=== PATIENT | male | born 1980 | race Two or more races ===

== ENCOUNTER 2018-12-04 19:54 | Inpatient (IN) | payer SELFPAY ==
[~2018-12-04] VITALS: Ht 167.6 cm; Wt 121.8 kg
[2018-12-04] MEDS ORDERED: fentaNYL PF VIAL 100 MCG/2 ML VIAL IV ONE (20:30)
[2018-12-04 20:38] LABS: BASO % 0 % (0-3); EOS % 0 % (0-3); HEMATOCRIT 42.9 % (39.0-53.0); HEMOGLOBIN 14.5 g/dL (13.0-17.5); LYMPH # 1.3 x10^3/uL (1.0-4.8); LYMPH % 6 % (24-48); MEAN CORPUSCULAR HEMOGLOBIN 29 pg (25-35); MEAN CORPUSCULAR HGB CONC 34 g/dL (31-37); MEAN CORPUSCULAR VOLUME 84 fL (79-100); MONO # 1.6 x10^3/uL (0.0-1.1); MONO % 7 % (0-9); NEUT % 87 % (31-73); PLATELET COUNT 272 x10^3/uL (140-400); RED CELL DISTRIBUTION WIDTH 13.5 % (11.5-14.5); WHITE BLOOD COUNT 21.9 x10^3/uL (4.0-11.0)
[2018-12-04 20:46] LABS: PROTHROMBIN TIME PATIENT 14.4 SEC (11.7-14.0)
[2018-12-04 20:48] LABS: CALCIUM 9.6 mg/dL (8.5-10.1); CREATININE 1.5 mg/dL (0.7-1.3); GFR 52.4; POTASSIUM 3.7 mmol/L (3.5-5.1)
[2018-12-04 20:54] LABS: ALBUMIN 3.8 g/dL (3.4-5.0); ALBUMIN/GLOBULIN RATIO 1.1 (1.0-1.7); TOTAL BILIRUBIN 0.6 mg/dL (0.2-1.0); TOTAL PROTEIN 7.3 g/dL (6.4-8.2)
[2018-12-04] MEDS ORDERED: IOHEXOL 300 MG/ML 100ML VIAL. IV ONE (21:30)
[2018-12-04 21:33] LABS: % BANDS 2 % (0-9); % LYMPHS 9 % (24-48); % MONOS 4 % (0-10); % SEGS 85 % (35-66); PLT ESTIMATE ADEQUATE (ADEQUATE)
--- NOTE | 2018-12-04 21:38 | RAD ---
CT Head W/O Contrast: History: TRAUMA ALERT S/P FALL Comparison: none Axial images were obtained without contrast. The wallace and white matter appears normal and symmetrical for the patients age. There is no mass effect, extraaxial fluid collections or hydrocephalus. There is no gross bleed. There is no focal loss of wallace-white matter distinction to suggest acute ischemia, i.e. stroke. Impression: No acute findings. End impression CT C-Spine without contrast: Clinical History: TRAUMA ALERT S/P FALL Technique: Axial helical images of the cervical spine were obtained without contrast, axial coronal and sagittal reconstruction was performed. Findings: There is no loss of vertebral body stature. There is no prevertebral soft tissue swelling. The vertebral bodies are well aligned. The C1-C2 relationship is normal. The visualized osseous structures appear normal. Impression: No acute findings. Clinical correlation suggested. PQRS Compliance Statement: One or more of the following individualized dose reduction techniques were utilized for this examination: 1. Automated exposure control 2. Adjustment of the mA and/or kV according to patient size 3. Use of iterative reconstruction technique Electronically signed by: Kyler Birmingham III, MD (12/04/2018 9:35 PM) [facility]
[2018-12-04] MEDS ORDERED: CONTRAST GIVEN. MC PRN (21:45)
[2018-12-04] MEDS ORDERED: IV NORMAL SALINE 1000ML BAG 1,000 ML IV ONE (21:45)
--- NOTE | 2018-12-04 21:56 | RAD ---
CT chest abdomen and pelvis with contrast: History: Trauma due to fall Axial helical images of the chest abdomen and pelvis were obtained after the administration of 75 cc IV Omni 300 contrast. Comparison: none CT OF THE CHEST WITH IV CONTRAST: There is a mildly displaced comminuted fracture of the right scapula. There is mild deformity of the anterior left fifth through eighth ribs. There is no mediastinal lymphadenopathy or hematoma. There is no hilar lymphadenopathy. The lungs are clear. The thoracic aorta appears normal. Impression: 1. Acute nondisplaced rib fractures on the left. 2. Mildly displaced fracture of the right scapula. End Impression CT SCAN OF THE ABDOMEN WITH IV CONTRAST: Findings: Liver: Unremarkable Spleen: Unremarkable Pancreas: Unremarkable Adrenal Glands: Unremarkable Kidneys: Unremarkable Evaluation of stomach and bowel is limited without oral contrast. There is no mass or lymphadenopathy. There is no free air. There is no free fluid. There is soft tissue ecchymosis over the left flank and left buttocks. CT OF THE PELVIS WITH IV CONTRAST: There is no lymphadenopathy or free fluid. The bladder appears normal without extravasation of contrast. There is no pericolonic inflammation. There is fractures of the left first through fourth lumbar transverse processes. Impression: 1. Diffuse ecchymosis in the soft tissues on the left. No acute intra-abdominal or intrapelvic pathology. 2. Acute fractures of the left transverse processes of L1-L4. End impression CT thoracic spine without contrast History: Back pain Axial helical images of the thoracic spine were obtained without contrast. Axial, coronal and sagittal reconstruction was performed. Findings: There is fractures of the T9-T12 spinous processes. The vertebral bodies are aligned. There is no loss of vertebral body stature. Evaluation of the central canal is limited without contrast. There is no evidence of significant central or neuroforaminal stenosis. Impression: Acute fractures of the T9 through T12 spinous processes. PQRS Compliance Statement: One or more of the following individualized dose reduction techniques were utilized for this examination: 1. Automated exposure control 2. Adjustment of the mA and/or kV according to patient size 3. Use of iterative reconstruction technique Electronically signed by: Kyler Birmingham III, MD (12/04/2018 9:53 PM) [facility]
--- NOTE | 2018-12-04 22:06 | RAD ---
SHOULDER 2+V RIGHT, PORTABLE CHEST 1V Clinical History: RIGHT SHOULDER PAIN AFTER FALL OFF 6 FOOT LEDGE. IN C-COLLAR One view chest: Technique: AP view of the chest was obtained at 12/04/2018 8:14 PM. Comparison: None. Findings: The cardiomediastinal silhouette is normal. The pulmonary vasculature is normal. The lungs and pleural margins are clear. Impression: No evidence of an acute cardiopulmonary process. End impression Three views right shoulder History: pain Internally and externally rotated AP of shoulder obtained, as well as "Y" view. The glenohumeral relationship is normal. There is a comminuted mildly displaced fracture of the right scapula. Impression: Acute fracture of the right scapula. end impression Electronically signed by: Kyler Birmingham III, MD (12/04/2018 10:03 PM) [facility]
[2018-12-04] MEDS: ONDANSETRON PF 4 MG/2 ML VIAL. IV PRN (23:22)
[2018-12-04] MEDS: MORPHINE SULFATE 4 MG/ML VIAL. IV PRN (23:22)
--- NOTE | 2018-12-04 23:32 | PHYS DOC ---
Past Medical History Past Medical History: No Pertinent History Past Surgical History: No Surgical History Alcohol Use: None Drug Use: Cocaine Adult General Chief Complaint Chief Complaint: TRAUMA ALERT HPI HPI Patient is a 38 year old M P/W TRAUMA FELL DOWN 6 FEET OFF LADDER LANDED ON BACK. PAIN SHARP SEVERE LOW BACK AND UPPER BACK WELL. RIGHT SHOULDER RADIATION NO LOC HAS NOT TRIED ANYTHING FOR RELIEF. NO PREVIOUS MEDICAL HX NO MEDS NO ALLERGIES DOES NOT HAVE A DOCTOR HAPPENED JUST STRAWBERRY GROWER NO ALLEVIATING FACTORS Review of Systems Review of Systems Constitutional: Denies fever or chills [] Eyes: Denies change in visual acuity, redness, or eye pain [] HENT: Denies nasal congestion or sore throat [] Respiratory:CHEST PAIN NOTED ON LEFT WELL Musculoskeletal: Integument: Denies rash or skin lesions [] Neurologic: Denies headache, focal weakness or sensory changes [] All other systems were reviewed and found to be within normal limits, except as documented in this note. Current Medications Current Medications Current Medications Medications (Trade) Dose Ordered Sig/Samanta Start Time Stop Time Status Last Admin Dose Admin Fentanyl Citrate (Fentanyl 2ml Vial) 50 mcg 1X ONCE 12/04/18 20:30 12/04/18 20:36 DC 12/04/18 21:22 50 MCG Info (CONTRAST GIVEN -- Rx MONITORING) 1 each PRN DAILY PRN 12/04/18 21:45 12/06/18 21:44 Iohexol (Omnipaque 300 Mg/ml) 75 ml 1X ONCE 12/04/18 21:30 12/04/18 21:31 DC Morphine Sulfate (Morphine Sulfate) 4 mg PRN Q2HR PRN 12/04/18 23:15 12/05/18 23:14 12/04/18 23:22 4 MG Ondansetron HCl (Zofran) 4 mg PRN Q8HRS PRN 12/04/18 23:15 12/05/18 23:14 12/04/18 23:22 4 MG Sodium Chloride 1,000 ml @ 1,000 mls/hr 1X ONCE 12/04/18 21:45 12/04/18 22:44 DC 12/04/18 21:58 1,000 MLS/HR Allergies Allergies Allergies Coded Allergies Type Severity Reaction Last Updated Verified No Known Drug Allergies 12/04/18 No Physical Exam Physical Exam Constitutional: Well developed, well nourished, no acute distress, non-toxic appearance. [] HENT: Normocephalic, atraumatic, bilateral external ears normal, oropharynx moist, no oral exudates, nose normal. [] Eyes: PERRLA, EOMI, conjunctiva normal, no discharge. [] Neck: Normal range of motion, no tenderness, supple, no stridor. [] Cardiovascular:Heart rate regular rhythm, no murmur [] Lungs & Thorax: Bilateral breath sounds clear to auscultation [] Abdomen: Bowel sounds normal, soft, no tenderness, no masses, no pulsatile masses. [] Skin: Warm, dry, no erythema, no rash. [] Back: No tenderness, no CVA tenderness. [] Extremities: No tenderness, no cyanosis, no clubbing, ROM intact, no edema. [] Neurologic: Alert and oriented X 3, normal motor function, normal sensory function, no focal deficits noted. [] Psychologic: Affect normal, judgement normal, mood normal. [] Current Patient Data Vital Signs Vital Signs Date Time Temp Pulse Resp B/P (MAP) Pulse Ox O2 Delivery O2 Flow Rate FiO2 12/04/18 23:22 19 97 Room Air 12/04/18 22:20 65 132/71 (91) 12/04/18 20:00 98.6 98.6 Lab Values Laboratory Tests Test 12/04/18 20:30 White Blood Count 21.9 x10^3/uL (4.0-11.0) H Red Blood Count 5.10 x10^6/uL (4.30-5.70) Hemoglobin 14.5 g/dL (13.0-17.5) Hematocrit 42.9 % (39.0-53.0) Mean Corpuscular Volume 84 fL (79-100) Mean Corpuscular Hemoglobin 29 pg (25-35) Mean Corpuscular Hemoglobin Concent 34 g/dL (31-37) Red Cell Distribution Width 13.5 % (11.5-14.5) Platelet Count 272 x10^3/uL (140-400) Neutrophils (%) (Auto) 87 % (31-73) H Lymphocytes (%) (Auto) 6 % (24-48) L Monocytes (%) (Auto) 7 % (0-9) Eosinophils (%) (Auto) 0 % (0-3) Basophils (%) (Auto) 0 % (0-3) Neutrophils # (Auto) 19.0 x10^3uL (1.8-7.7) H Lymphocytes # (Auto) 1.3 x10^3/uL (1.0-4.8) Monocytes # (Auto) 1.6 x10^3/uL (0.0-1.1) H Eosinophils # (Auto) 0.0 x10^3/uL (0.0-0.7) Basophils # (Auto) 0.0 x10^3/uL (0.0-0.2) Segmented Neutrophils % 85 % (35-66) H Band Neutrophils % 2 % (0-9) Lymphocytes % 9 % (24-48) L Monocytes % 4 % (0-10) Platelet Estimate Adequate (ADEQUATE) Prothrombin Time 14.4 SEC (11.7-14.0) H Prothrombin Time INR 1.2 (0.8-1.1) H Sodium Level 134 mmol/L (136-145) L Potassium Level 3.7 mmol/L (3.5-5.1) Chloride Level 97 mmol/L (98-107) L Carbon Dioxide Level 22 mmol/L (21-32) Anion Gap 15 (6-14) H Blood Urea Nitrogen 23 mg/dL (8-26) Creatinine 1.5 mg/dL (0.7-1.3) H Estimated GFR (Cockcroft-Gault) 52.4 BUN/Creatinine Ratio 15 (6-20) Glucose Level 126 mg/dL (70-99) H Calcium Level 9.6 mg/dL (8.5-10.1) Total Bilirubin 0.6 mg/dL (0.2-1.0) Aspartate Amino Transferase (AST) 54 U/L (15-37) H Alanine Aminotransferase (ALT) 56 U/L (16-63) Alkaline Phosphatase 116 U/L (46-116) Total Protein 7.3 g/dL (6.4-8.2) Albumin 3.8 g/dL (3.4-5.0) Albumin/Globulin Ratio 1.1 (1.0-1.7) Ethyl Alcohol Level < 10 mg/dL (0-10) Laboratory Tests 12/04/18 20:30 Laboratory Tests 12/04/18 20:30 EKG EKG [] Radiology/Procedures Radiology/Procedures [] Impressions: One view chest: Technique: AP view of the chest was obtained at 12/04/2018 8:14 PM. Comparison: None. Findings: The cardiomediastinal silhouette is normal. The pulmonary vasculature is normal. The lungs and pleural margins are clear. Impression: No evidence of an acute cardiopulmonary process. End impression Three views right shoulder History: pain Internally and externally rotated AP of shoulder obtained, as well as "Y" view. The glenohumeral relationship is normal. There is a comminuted mildly displaced fracture of the right scapula. Impression: Acute fracture of the right scapula. end impression Electronically signed by: Anibal Birmingham III, MD (12/04/2018 10:03 PM) [facility] DICTATED and SIGNED BY: ANIBAL BIRMINGHAM III, MD CT OF THE CHEST WITH IV CONTRAST: There is a mildly displaced comminuted fracture of the right scapula. There is mild deformity of the anterior left fifth through eighth ribs. There is no mediastinal lymphadenopathy or hematoma. There is no hilar lymphadenopathy. The lungs are clear. The thoracic aorta appears normal. Impression: 1. Acute nondisplaced rib fractures on the left. 2. Mildly displaced fracture of the right scapula. End Impression CT SCAN OF THE ABDOMEN WITH IV CONTRAST: Findings: Liver: Unremarkable Spleen: Unremarkable Pancreas: Unremarkable Adrenal Glands: Unremarkable Kidneys: Unremarkable Evaluation of stomach and bowel is limited without oral contrast. There is no mass or lymphadenopathy. There is no free air. There is no free fluid. There is soft tissue ecchymosis over the left flank and left buttocks. CT OF THE PELVIS WITH IV CONTRAST: There is no lymphadenopathy or free fluid. The bladder appears normal without extravasation of contrast. There is no pericolonic inflammation. There is fractures of the left first through fourth lumbar transverse processes. Impression: 1. Diffuse ecchymosis in the soft tissues on the left. No acute intra-abdominal or intrapelvic pathology. 2. Acute fractures of the left transverse processes of L1-L4. End impression CT thoracic spine without contrast History: Back pain Axial helical images of the thoracic spine were obtained without contrast. Axial, coronal and sagittal reconstruction was performed. Findings: There is fractures of the T9-T12 spinous processes. The vertebral bodies are aligned. There is no loss of vertebral body stature. Evaluation of the central canal is limited without contrast. There is no evidence of significant central or neuroforaminal steno sis. Impression: Acute fractures of the T9 through T12 spinous processes. PQRS Compliance Statement: One or more of the following individualized dose reduction techniques were utilized for this examination: 1. Automated exposure control 2. Adjustment of the mA and/or kV according to patient size 3. Use of iterative reconstruction technique Electronically signed by: Anibal Birmingham III, MD (12/04/2018 9:53 PM) [facility] DICTATED and SIGNED BY: ANIBAL BIRMINGHAM III, MD DATE: 12/04/182152 CT C-Spine without contrast: Clinical History: TRAUMA ALERT S/P FALL Technique: Axial helical images of the cervical spine were obtained without contrast, axial coronal and sagittal reconstruction was performed. Findings: There is no loss of vertebral body stature. There is no prevertebral soft tissue swelling. The vertebral bodies are well aligned. The C1-C2 relationship is normal. The visualized osseous structures appear normal. Impression: No acute findings. Clinical correlation suggested. PQRS Compliance Statement: One or more of the following individualized dose reduction techniques were utilized for this examination: 1. Automated exposure control 2. Adjustment of the mA and/or kV according to patient size 3. Use of iterative reconstruction technique Electronically signed by: Anibal Birmingham III, MD (12/04/2018 9:35 PM) [facility] DICTATED and SIGNED BY: ANIBAL BIRMINGHAM III, MD DATE: 12/04/182134 Course & Med Decision Making Course & Med Decision Making Pertinent Labs and Imaging studies reviewed. (See chart for details) []38 YO FALL DOWN SIX FEET TP , SPINOUS PROCESS MULTIPLE OF EACH RIB FRACTURES FAST WAS NEGATIVE ON ARRIVAL CT C/A/P NO PTX, KIRK, OR INTRAABDOMIONAL BLEEDING SCAPULA FRACTURE SLING TO RUE. PT IS NEURO INTACT DISTALLY STRENGTH AND SENSATION INTACT IN LOWER EXTREMITIES AT THIS TIME. I CLEARED CSPINE HE WAS ABLE TO COOPERATE WITH EXAM AFTER PAIN CONTROL AND CT CSPINE NEG . D/W RADHA, WILL ADMIT TO HOSPITALIST PAIN CONTROL, ORTHO AND N'SURG CONSULT I D/W PATIENT VIA DIRECTOR SELECTION AND ADMINISTRATION THE PLAN AND HE IS IN AGREEMENT. Dragon Disclaimer Dragon Disclaimer This electronic medical record was generated, in whole or in part, using a voice recognition dictation system. Departure Departure Impression: Primary Impression: Rib fractures Additional Impressions: Scapula fracture Multiple transverse process fractures Disposition: 09 ADMITTED INPATIENT Admitting Physician: Debra Chowdhury Condition: STABLE Referrals: NO PCP (PCP) Problem Qualifiers BRINA MERCER MD Dec 04, 2018 23:32
[2018-12-05] VITALS (7 sets, daily range): BP systolic 106–124; BP diastolic 50–77
[2018-12-05] MEDS: MORPHINE SULFATE 4 MG/ML VIAL. IV PRN ×3 (01:37→13:15)
--- NOTE | 2018-12-05 02:54 | NUR ---
The patient, DIEGO ALLEN, 38 y/o, was M admitted by MILA GAINES MD. Pt. arrived on unit at 0130 via bed. Pt. described pain as 10/10. Pain medication was given. Admission assessment done at this time. Pt. was given written information regarding hospital policies, unit procedures and contact persons. Call light within reach, bed low. Will continue to monitor.
--- NOTE | 2018-12-05 03:23 | NUR ---
Pt. does not have a pharmacy he uses. He has no known medications.
[2018-12-05] MEDS: IV NORMAL SALINE 1000ML BAG 1,000 ML IV SCH ×2 (05:57→15:53)
[2018-12-05] MEDS: ONDANSETRON PF 4 MG/2 ML VIAL. IV PRN (05:58)
--- NOTE | 2018-12-05 09:49 | PDOC2 ---
SHANEKA CASON FUR [employer]AT SEWER 12/05/18 0949: CONSULT Date of Consult Date of Consult DATE: 12/05/18 TIME: 09:43 Reason for Consult Reason for Consult: Trauma consult Referring Physician Referring Physician: ER Source Source: Chart review, Patient History of Present Illness Reason for Visit: Admitted after fall for ladder, 6 feet high. Fell on back, pain in back and left side. Denies LOC.Denies abdominal pain, nausea or emesis. Past Medical History Past Medical History no pertinent hx Past Surgical History Past Surgical History: Other (right leg surgery after fall from horse) Family History Family History: Family History Unknown Social History <1 pack per day ALCOHOL: social Drugs: Cocaine Lives: Alone Current Problem List Problem List Problems Medical Problems: (1) Multiple transverse process fractures Status: Acute (2) Rib fractures Status: Acute (3) Scapula fracture Status: Acute Current Medications Current Medications Current Medications Fentanyl Citrate (Fentanyl 2ml Vial) 50 mcg 1X ONCE IV Last administered on 12/04/18at 21:22; Start 12/04/18 at 20:30; Stop 12/04/18 at 20:36; Status DC Iohexol (Omnipaque 300 Mg/ml) 75 ml 1X ONCE IV ; Start 12/04/18 at 21:30; Stop 12/04/18 at 21:31; Status DC Info (CONTRAST GIVEN -- Rx MONITORING) 1 each PRN DAILY PRN MC SEE COMMENTS; Start 12/04/18 at 21:45; Stop 12/06/18 at 21:44 Sodium Chloride 1,000 ml @ 1,000 mls/hr 1X ONCE IV Last administered on 12/04/18at 21:58; Start 12/04/18 at 21:45; Stop 12/04/18 at 22:44; Status DC Ondansetron HCl (Zofran) 4 mg PRN Q8HRS PRN IV NAUSEA/VOMITING Last administered on 12/05/18at 05:58; Start 12/04/18 at 23:15; Stop 12/05/18 at 23:14 Morphine Sulfate (Morphine Sulfate) 4 mg PRN Q2HR PRN IV PAIN Last administered on 12/05/18at 05:57; Start 12/04/18 at 23:15; Stop 12/05/18 at 23:14 Influenza Virus Vaccine (Afluria Trivalent [id number] Syringe) 0.5 ml ONCE ONCE VAX IM ; Start 12/05/18 at 03:00; Stop 12/05/18 at 03:01; Status UNV Sodium Chloride 1,000 ml @ 100 mls/hr Q10H IV Last administered on 12/05/18at 05:57; Start 12/05/18 at 06:00 Active Scripts Active Reported No Known Medications Prior To Admisstion (Info) Each 1 Each MC 1X Allergies Allergies: Coded Allergies: No Known Drug Allergies (Unverified , 12/04/18) ROS General: No: Chills, Other (fevers) PSYCHOLOGICAL ROS: No: Anxiety, Depression Eyes: No Blurry vision, No Double vision, No Loss of vision, No Photophobia HEENT: No: Heacaches, Visual Changes, Hearing change, Sore Throat Hematological and Lymphatic: No: Bleeding Problems, Blood Clots Respiratory: YES: Shortness of breath; No: Cough Cardiovascular: No Chest Pain, No Palpitations Gastrointestinal: Yes Other (see hpi) Genitourinary: No Dysuria, No Hematuria Musculoskeletal: Yes Joint Pain, Yes Muscle Pain Neurological: No Bowel/Bladder ControlChng, No Impaired Coord/balance, No Nu mbness/Tingling Skin: No Pruritus, No Rash Physical Exam General: Alert, Oriented X3, Cooperative, No acute distress HEENT: PERRLA, Mucous membr. moist/pink Lungs: Clear to auscultation, Normal air movement Heart: Regular rate, Normal S1, Normal S2, No murmurs Abdomen: Soft, No tenderness, No hepatosplenomegaly Extremities: No clubbing, No cyanosis Skin: No rashes, No breakdown Neuro: Normal speech, Sensation intact Psych/Mental Status: Mental status NL, Mood NL MUSCULOSKELETAL: Other (right arm in sling ) Vitals VITALS Vital Signs Date Time Temp Pulse Resp B/P (MAP) Pulse Ox O2 Delivery O2 Flow Rate FiO2 12/05/18 07:00 98.3 68 18 108/54 (72) 96 Room Air 98.3 Labs Labs Laboratory Tests Test 12/04/18 20:30 White Blood Count 21.9 x10^3/uL (4.0-11.0) Red Blood Count 5.10 x10^6/uL (4.30-5.70) Hemoglobin 14.5 g/dL (13.0-17.5) Hematocrit 42.9 % (39.0-53.0) Mean Corpuscular Volume 84 fL (79-100) Mean Corpuscular Hemoglobin 29 pg (25-35) Mean Corpuscular Hemoglobin Concent 34 g/dL (31-37) Red Cell Distribution Width 13.5 % (11.5-14.5) Platelet Count 272 x10^3/uL (140-400) Neutrophils (%) (Auto) 87 % (31-73) Lymphocytes (%) (Auto) 6 % (24-48) Monocytes (%) (Auto) 7 % (0-9) Eosinophils (%) (Auto) 0 % (0-3) Basophils (%) (Auto) 0 % (0-3) Neutrophils # (Auto) 19.0 x10^3uL (1.8-7.7) Lymphocytes # (Auto) 1.3 x10^3/uL (1.0-4.8) Monocytes # (Auto) 1.6 x10^3/uL (0.0-1.1) Eosinophils # (Auto) 0.0 x10^3/uL (0.0-0.7) Basophils # (Auto) 0.0 x10^3/uL (0.0-0.2) Segmented Neutrophils % 85 % (35-66) Band Neutrophils % 2 % (0-9) Lymphocytes % 9 % (24-48) Monocytes % 4 % (0-10) Platelet Estimate Adequate (ADEQUATE) Prothrombin Time 14.4 SEC (11.7-14.0) Prothromb Time International Ratio 1.2 (0.8-1.1) Sodium Level 134 mmol/L (136-145) Potassium Level 3.7 mmol/L (3.5-5.1) Chloride Level 97 mmol/L (98-107) Carbon Dioxide Level 22 mmol/L (21-32) Anion Gap 15 (6-14) Blood Urea Nitrogen 23 mg/dL (8-26) Creatinine 1.5 mg/dL (0.7-1.3) Estimated GFR (Cockcroft-Gault) 52.4 BUN/Creatinine Ratio 15 (6-20) Glucose Level 126 mg/dL (70-99) Calcium Level 9.6 mg/dL (8.5-10.1) Total Bilirubin 0.6 mg/dL (0.2-1.0) Aspartate Amino Transf (AST/SGOT) 54 U/L (15-37) Alanine Aminotransferase (ALT/SGPT) 56 U/L (16-63) Alkaline Phosphatase 116 U/L (46-116) Total Protein 7.3 g/dL (6.4-8.2) Albumin 3.8 g/dL (3.4-5.0) Albumin/Globulin Ratio 1.1 (1.0-1.7) Ethyl Alcohol Level < 10 mg/dL (0-10) Laboratory Tests Test 12/04/18 20:30 White Blood Count 21.9 x10^3/uL (4.0-11.0) Red Blood Count 5.10 x10^6/uL (4.30-5.70) Hemoglobin 14.5 g/dL (13.0-17.5) Hematocrit 42.9 % (39.0-53.0) Mean Corpuscular Volume 84 fL (79-100) Mean Corpuscular Hemoglobin 29 pg (25-35) Mean Corpuscular Hemoglobin Concent 34 g/dL (31-37) Red Cell Distribution Width 13.5 % (11.5-14.5) Platelet Count 272 x10^3/uL (140-400) Neutrophils (%) (Auto) 87 % (31-73) Lymphocytes (%) (Auto) 6 % (24-48) Monocytes (%) (Auto) 7 % (0-9) Eosinophils (%) (Auto) 0 % (0-3) Basophils (%) (Auto) 0 % (0-3) Neutrophils # (Auto) 19.0 x10^3uL (1.8-7.7) Lymphocytes # (Auto) 1.3 x10^3/uL (1.0-4.8) Monocytes # (Auto) 1.6 x10^3/uL (0.0-1.1) Eosinophils # (Auto) 0.0 x10^3/uL (0.0-0.7) Basophils # (Auto) 0.0 x10^3/uL (0.0-0.2) Segmented Neutrophils % 85 % (35-66) Band Neutrophils % 2 % (0-9) Lymphocytes % 9 % (24-48) Monocytes % 4 % (0-10) Platelet Estimate Adequate (ADEQUATE) Prothrombin Time 14.4 SEC (11.7-14.0) Prothromb Time International Ratio 1.2 (0.8-1.1) Sodium Level 134 mmol/L (136-145) Potassium Level 3.7 mmol/L (3.5-5.1) Chloride Level 97 mmol/L (98-107) Carbon Dioxide Level 22 mmol/L (21-32) Anion Gap 15 (6-14) Blood Urea Nitrogen 23 mg/dL (8-26) Creatinine 1.5 mg/dL (0.7-1.3) Estimated GFR (Cockcroft-Gault) 52.4 BUN/Creatinine Ratio 15 (6-20) Glucose Level 126 mg/dL (70-99) Calcium Level 9.6 mg/dL (8.5-10.1) Total Bilirubin 0.6 mg/dL (0.2-1.0) Aspartate Amino Transf (AST/SGOT) 54 U/L (15-37) Alanine Aminotransferase (ALT/SGPT) 56 U/L (16-63) Alkaline Phosphatase 116 U/L (46-116) Total Protein 7.3 g/dL (6.4-8.2) Albumin 3.8 g/dL (3.4-5.0) Albumin/Globulin Ratio 1.1 (1.0-1.7) Ethyl Alcohol Level < 10 mg/dL (0-10) Assessment/Plan Assessment/Plan Trauma fall from ladder imaging with left rib fxs, t9-t12 fxs, right scapula fx CT abd/pelvis--no acute process supportive measures, neuro and ortho consults pending no gen surg indications PADMINI GARCIA MD 12/05/18 1649: CONSULT Assessment/Plan Assessment/Plan Above reviewed; agree with above, Neuro and Ortho consulted; no Gen Surgery recs SHANEKA CASON [employer] Dec 05, 2018 09:49 PADMINI GARCIA MD Dec 05, 2018 16:49
--- NOTE | 2018-12-05 12:02 | HP ---
ADMIT DATE: 12/05/2018 CHIEF COMPLAINT: Fall off of a ladder. HISTORY OF PRESENT ILLNESS: The patient is a pleasant 38-year-old male who fell off a ladder about 8 feet. He complains of chest pain and scapular pain and back pain. We did some imaging. He has got a spinous process fracture, a scapular fracture and a rib fracture. I have discussed the case with the ER physician. We are going to admit the patient and consult Orthopedics and Dr. Lemos and General Surgery. PAST MEDICAL HISTORY: Benign. ALLERGIES: None. FAMILY HISTORY: Coronary artery disease. SOCIAL HISTORY: He does not drink, smoke or take drugs. MEDICATIONS: Reviewed. Please refer to the MRAD. REVIEW OF SYSTEMS: GENERAL: No history of weight change, weakness or fevers. SKIN: No bruising, hair changes or rashes. EYES: No blurred, double or loss of vision. NOSE AND THROAT: No history of nosebleeds, hoarseness or sore throat. HEART: No history of palpitations, chest pain or shortness of breath on exertion. LUNGS: Denies cough, hemoptysis, wheezing or shortness of breath. GASTROINTESTINAL: Denies changes in appetite, nausea, vomiting, diarrhea or constipation. GENITOURINARY: No history of frequency, urgency, hesitancy or nocturia. NEUROLOGIC: Denies history of numbness, tingling, tremor or weakness. PSYCHIATRIC: No history of panic, anxiety or depression. ENDOCRINE: No history of heat or cold intolerance, polyuria or polydipsia. EXTREMITIES: Denies muscle weakness, joint pain, pain on walking or stiffness. MUSCULOSKELETAL: He complains of diffuse pain. PHYSICAL EXAMINATION: VITAL SIGNS: Stable. GENERAL: He is alert, cooperative. HEART: Normal S1, S2. LUNGS: Clear. ABDOMEN: Soft. EXTREMITIES: No edema. SKIN: No rash. ENDOCRINE: No thyromegaly. LYMPHATICS: No cervical lymph nodes. HEMATOPOIETIC: No bruising. PSYCHIATRIC: He is depressed. LABORATORY DATA: Labs are pending. ASSESSMENT AND PLAN: Fall with rib fracture, scapular fracture and spinous process fracture. The patient is being admitted. We will consult Dr. Lemos, Dr. Galvez and Dr. Allen. P.r.n. narcotics, IV fluids, frequent labs, PT and OT. MACARIO REED DO DR: Ubaldo JOB#: [id number] / [id number]
--- NOTE | 2018-12-05 14:40 | NUR ---
SW following for discharge planning. Discussed with RN, pt is from home and is [place] speaking. Pt reportedly fell off a ladder at work. Devi Brambila meeting with pt to discuss bill as pt has some concerns about it, per SW consult. RN advised they are waiting on the doctors for the plan of care. SW to give pt self pay resources prior to discharge.
--- NOTE | 2018-12-05 15:24 | PDOC ---
Provider Note Provider Note Patient seen and examined at 1220 fell from ladder neuro intact imaging with L1-L4 left transverse process fractures and T9-10 Spinous process fractures will consult Dr. Ascencio for rehab and symptomatic treatment call with questions MIRTA MATTHEWS MD Dec 05, 2018 15:24
[2018-12-05] MEDS ORDERED: ACETAMINOPHEN 500 MG TABLET PO PRN (17:15)
[2018-12-05] MEDS ORDERED: tiZANidine 4 MG TABLET. PO PRN (17:15)
[2018-12-05] MEDS: PANTOPRAZOLE 40 MG TABLET.DR. PO SCH (17:49)
[2018-12-05] MEDS: IBUPROFEN 400 MG TABLET. PO SCH (17:49)
--- NOTE | 2018-12-05 19:49 | PDOC2 ---
CONSULT Date of Consult Date of Consult DATE: 12/05/18 TIME: 19:45 Reason for Consult Reason for Consult: Scapular fracture Identification/Chief Complaint Chief Complaint Multiple areas of pain. Right shoulder and rib pain Source Source: Chart review, Patient History of Present Illness Reason for Visit: This 38-year-old man was working on a roof and fell. He sustained multiple fractures including a scapula fracture. He had a coworker with him who helps translate. I offered the patient a formal director risk and he declined. He describes shoulder pain posteriorly consistent with scapular fracture. He is moving slowly but appears to be neurovascularly intact throughout. Past Surgical History Past Surgical History: Other (right leg surgery after fall from horse) Family History Family History: Family History Unknown Social History <1 pack per day ALCOHOL: social Drugs: Cocaine Lives: Alone Current Problem List Problem List Problems Medical Problems: (1) Multiple transverse process fractures Status: Acute (2) Rib fractures Status: Acute (3) Scapula fracture Status: Acute Current Medications Current Medications Current Medications Fentanyl Citrate (Fentanyl 2ml Vial) 50 mcg 1X ONCE IV Last administered on 12/04/18at 21:22; Start 12/04/18 at 20:30; Stop 12/04/18 at 20:36; Status DC Iohexol (Omnipaque 300 Mg/ml) 75 ml 1X ONCE IV ; Start 12/04/18 at 21:30; Stop 12/04/18 at 21:31; Status DC Info (CONTRAST GIVEN -- Rx MONITORING) 1 each PRN DAILY PRN MC SEE COMMENTS; Start 12/04/18 at 21:45; Stop 12/06/18 at 21:44 Sodium Chloride 1,000 ml @ 1,000 mls/hr 1X ONCE IV Last administered on 12/04/18at 21:58; Start 12/04/18 at 21:45; Stop 12/04/18 at 22:44; Status DC Ondansetron HCl (Zofran) 4 mg PRN Q8HRS PRN IV NAUSEA/VOMITING Last administered on 12/05/18at 05:58; Start 12/04/18 at 23:15; Stop 12/05/18 at 23:14 Morphine Sulfate (Morphine Sulfate) 4 mg PRN Q2HR PRN IV PAIN Last administered on 12/05/18at 13:15; Start 12/04/18 at 23:15; Stop 12/05/18 at 23:14 Influenza Virus Vaccine (Afluria Trivalent [id number] Syringe) 0.5 ml ONCE ONCE VAX IM ; Start 12/05/18 at 03:00; Stop 12/05/18 at 03:01; Status UNV Sodium Chloride 1,000 ml @ 100 mls/hr Q10H IV Last administered on 12/05/18at 15:53; Start 12/05/18 at 06:00 Ibuprofen (Motrin) 800 mg TIDAC PO Last administered on 12/05/18at 17:49; Start 12/05/18 at 17:30 Acetaminophen/ Hydrocodone Bitart (Lortab 10/325) 1 tab PRN Q6HRS PRN PO MOD TO SEVERE PAIN; Start 12/05/18 at 17:15 Tizanidine HCl (Zanaflex) 4 mg PRN Q8HRS PRN PO MUSCLE SPASMS; Start 12/05/18 at 17:15 Acetaminophen (Tylenol) 1,000 mg PRN Q6HRS PRN PO MILD PAIN; Start 12/05/18 at 17:15 Pantoprazole Sodium (Protonix) 40 mg DAILYAC PO Last administered on 12/05/18at 17:49; Start 12/05/18 at 17:30 Active Scripts Active Reported No Known Medications Prior To Admisstion (Info) Each 1 Each 1X Allergies Allergies: Coded Allergies: No Known Drug Allergies (Unverified , 12/04/18) Physical Exam General: Alert, Cooperative Heart: Regular rate Extremities: No cyanosis, Normal pulses, Other (right scapular tenderness. Grossly normal alignment of the shoulder. No evidence of shoulder dislocation on examination. Distal sensory function, motor function capillary refill and pulses are normal within the limits of painful shoulder examination) Neuro: Normal speech, Sensation intact MUSCULOSKELETAL: Abnormal exam of right (shoulder as above. ) Vitals VITALS Vital Signs Date Time Temp Pulse Resp B/P (MAP) Pulse Ox O2 Delivery O2 Flow Rate FiO2 12/05/18 15:00 98.3 66 18 107/56 (73) 96 Room Air 98.3 Labs Labs Laboratory Tests Test 12/04/18 20:30 White Blood Count 21.9 x10^3/uL (4.0-11.0) Red Blood Count 5.10 x10^6/uL (4.30-5.70) Hemoglobin 14.5 g/dL (13.0-17.5) Hematocrit 42.9 % (39.0-53.0) Mean Corpuscular Volume 84 fL (79-100) Mean Corpuscular Hemoglobin 29 pg (25-35) Mean Corpuscular Hemoglobin Concent 34 g/dL (31-37) Red Cell Distribution Width 13.5 % (11.5-14.5) Platelet Count 272 x10^3/uL (140-400) Neutrophils (%) (Auto) 87 % (31-73) Lymphocytes (%) (Auto) 6 % (24-48) Monocytes (%) (Auto) 7 % (0-9) Eosinophils (%) (Auto) 0 % (0-3) Basophils (%) (Auto) 0 % (0-3) Neutrophils # (Auto) 19.0 x10^3uL (1.8-7.7) Lymphocytes # (Auto) 1.3 x10^3/uL (1.0-4.8) Monocytes # (Auto) 1.6 x10^3/uL (0.0-1.1) Eosinophils # (Auto) 0.0 x10^3/uL (0.0-0.7) Basophils # (Auto) 0.0 x10^3/uL (0.0-0.2) Segmented Neutrophils % 85 % (35-66) Band Neutrophils % 2 % (0-9) Lymphocytes % 9 % (24-48) Monocytes % 4 % (0-10) Platelet Estimate Adequate (ADEQUATE) Prothrombin Time 14.4 SEC (11.7-14.0) Prothromb Time International Ratio 1.2 (0.8-1.1) Sodium Level 134 mmol/L (136-145) Potassium Level 3.7 mmol/L (3.5-5.1) Chloride Level 97 mmol/L (98-107) Carbon Dioxide Level 22 mmol/L (21-32) Anion Gap 15 (6-14) Blood Urea Nitrogen 23 mg/dL (8-26) Creatinine 1.5 mg/dL (0.7-1.3) Estimated GFR (Cockcroft-Gault) 52.4 BUN/Creatinine Ratio 15 (6-20) Glucose Level 126 mg/dL (70-99) Calcium Level 9.6 mg/dL (8.5-10.1) Total Bilirubin 0.6 mg/dL (0.2-1.0) Aspartate Amino Transf (AST/SGOT) 54 U/L (15-37) Alanine Aminotransferase (ALT/SGPT) 56 U/L (16-63) Alkaline Phosphatase 116 U/L (46-116) Total Protein 7.3 g/dL (6.4-8.2) Albumin 3.8 g/dL (3.4-5.0) Albumin/Globulin Ratio 1.1 (1.0-1.7) Ethyl Alcohol Level < 10 mg/dL (0-10) Laboratory Tests Test 12/04/18 20:30 White Blood Count 21.9 x10^3/uL (4.0-11.0) Red Blood Count 5.10 x10^6/uL (4.30-5.70) Hemoglobin 14.5 g/dL (13.0-17.5) Hematocrit 42.9 % (39.0-53.0) Mean Corpuscular Volume 84 fL (79-100) Mean Corpuscular Hemoglobin 29 pg (25-35) Mean Corpuscular Hemoglobin Concent 34 g/dL (31-37) Red Cell Distribution Width 13.5 % (11.5-14.5) Platelet Count 272 x10^3/uL (140-400) Neutrophils (%) (Auto) 87 % (31-73) Lymphocytes (%) (Auto) 6 % (24-48) Monocytes (%) (Auto) 7 % (0-9) Eosinophils (%) (Auto) 0 % (0-3) Basophils (%) (Auto) 0 % (0-3) Neutrophils # (Auto) 19.0 x10^3uL (1.8-7.7) Lymphocytes # (Auto) 1.3 x10^3/uL (1.0-4.8) Monocytes # (Auto) 1.6 x10^3/uL (0.0-1.1) Eosinophils # (Auto) 0.0 x10^3/uL (0.0-0.7) Basophils # (Auto) 0.0 x10^3/uL (0.0-0.2) Segmented Neutrophils % 85 % (35-66) Band Neutrophils % 2 % (0-9) Lymphocytes % 9 % (24-48) Monocytes % 4 % (0-10) Platelet Estimate Adequate (ADEQUATE) Prothrombin Time 14.4 SEC (11.7-14.0) Prothromb Time International Ratio 1.2 (0.8-1.1) Sodium Level 134 mmol/L (136-145) Potassium Level 3.7 mmol/L (3.5-5.1) Chloride Level 97 mmol/L (98-107) Carbon Dioxide Level 22 mmol/L (21-32) Anion Gap 15 (6-14) Blood Urea Nitrogen 23 mg/dL (8-26) Creatinine 1.5 mg/dL (0.7-1.3) Estimated GFR (Cockcroft-Gault) 52.4 BUN/Creatinine Ratio 15 (6-20) Glucose Level 126 mg/dL (70-99) Calcium Level 9.6 mg/dL (8.5-10.1) Total Bilirubin 0.6 mg/dL (0.2-1.0) Aspartate Amino Transf (AST/SGOT) 54 U/L (15-37) Alanine Aminotransferase (ALT/SGPT) 56 U/L (16-63) Alkaline Phosphatase 116 U/L (46-116) Total Protein 7.3 g/dL (6.4-8.2) Albumin 3.8 g/dL (3.4-5.0) Albumin/Globulin Ratio 1.1 (1.0-1.7) Ethyl Alcohol Level < 10 mg/dL (0-10) Images Images reports reviewed, images independently reviewed. Minimally displaced right scapular body fracture seen on CT chest/abd/pelvis series 5 image 45, series 2 image 10. And on shoulder xr series 9 image 1. [facility] [address] [place] [address] IMAGING REPORT Signed PATIENT: DIEGO ALLEN ACCOUNT: [id number] : 1980 LOCATION: ER AGE: 38 SEX: M EXAM STATUS: PRE ER ORD. PHYSICIAN: BRIAN MERCER MD REASON: TRAUMA. PROCEDURE: CT CHEST ABD PELVIS W/CONTRAST CT chest abdomen and pelvis with contrast: History: Trauma due to fall Axial helical images of the chest abdomen and pelvis were obtained after the administration of 75 cc IV Omni 300 contrast. Comparison: none CT OF THE CHEST WITH IV CONTRAST: There is a mildly displaced comminuted fracture of the right scapula. There is mild deformity of the anterior left fifth through eighth ribs. There is no mediastinal lymphadenopathy or hematoma. There is no hilar lymphadenopathy. The lungs are clear. The thoracic aorta appears normal. Impression: 1. Acute nondisplaced rib fractures on the left. 2. Mildly displaced fracture of the right scapula. End Impression CT SCAN OF THE ABDOMEN WITH IV CONTRAST: Findings: Liver: Unremarkable Spleen: Unremarkable Pancreas: Unremarkable Adrenal Glands: Unremarkable Kidneys: Unremarkable Evaluation of stomach and bowel is limited without oral contrast. There is no mass or lymphadenopathy. There is no free air. There is no free fluid. There is soft tissue ecchymosis over the left flank and left buttocks. CT OF THE PELVIS WITH IV CONTRAST: There is no lymphadenopathy or free fluid. The bladder appears normal without extravasation of contrast. There is no pericolonic inflammation. There is fractures of the left first through fourth lumbar transverse processes. Impression: 1. Diffuse ecchymosis in the soft tissues on the left. No acute intra-abdominal or intrapelvic pathology. 2. Acute fractures of the left transverse processes of L1-L4. End impression CT thoracic spine without contrast History: Back pain Axial helical images of the thoracic spine were obtained without contrast. Axial, coronal and sagittal reconstruction was performed. Findings: There is fractures of the T9-T12 spinous processes. The vertebral bodies are aligned. There is no loss of vertebral body stature. Evaluation of the central canal is limited without contrast. There is no evidence of significant central or neuroforaminal stenosis. Impression: Acute fractures of the T9 through T12 spinous processes. PQRS Compliance Statement: One or more of the following individualized dose reduction techniques were utilized for this examination: 1. Automated exposure control 2. Adjustment of the mA and/or kV according to patient size 3. Use of iterative reconstruction technique Electronically signed by: Kyler Jo III, MD (12/04/2018 9:53 PM) [facility] DICTATED and SIGNED BY: KYLER JO III, MD DATE: 12/04/18 7152 Assessment/Plan Assessment/Plan closed right scapula fracture. comminuted, minimally displaced. These do best with nonoperative treatment (surgery would make this worse). Arm sling, pain control, pendulum exercises. Begin AROM and lifting arm in 2-3 weeks as pain allows. KYLER PIPER MD Dec 05, 2018 19:49
[2018-12-05] MEDS ORDERED: oxyCODONE/APAP 5/325 1 TAB TABLET PO PRN ×2 (20:00)
[2018-12-05] MEDS: HYDROcodone/APAP 10/325 1 TAB TABLET PO PRN (22:42)
[2018-12-06 03:30] VITALS: BP 105/49
[2018-12-06] MEDS: IV NORMAL SALINE 1000ML BAG 1,000 ML IV SCH ×2 (03:36→12:13)
--- NOTE | 2018-12-06 04:52 | CONS ---
DATE OF CONSULTATION: 12/05/2018 ATTENDING PHYSICIAN: Dr. Colvin The patient was seen at the request of Dr. Colvin and Dr. Lemos for rehab evaluation. 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 He complained of chest and scapular pain and back pain. Radiologic studies revealed comminuted fracture of right scapula, rib fractures on the left side and also midthoracic spinal process and transverse process fracture of lumbar vertebra. The patient denies any numbness or tingling sensation in his extremities. He denies any headaches. The patient mainly admits pain in his back and more so in his right shoulder blade area. The patient is not known allergic to any medication. Family history of coronary artery disease. He lives with his friend, had one step to enter the house. The patient does not have any health insurance at the present time. PHYSICAL EXAMINATION: Today revealed a young male patient, in moderate distress about his right shoulder pain. The patient had arm sling in place to his right upper extremity. He had 4+/5 grade muscle strength overall. He is protecting his right shoulder and right arm. The patient had equal perception of touch and pinprick sensation bilaterally. Deep tendon reflexes are 1-2+ and symmetrical. He had tenderness to palpation over right shoulder blade area and also thoracic and lumbar spine area with minimal paraspinal muscle spasm. The patient requires some help with bed mobility and once up, he can walk without any assistive devices. His skin is intact at this time. No obvious visual field or facial asymmetry noted. He had painful range of motion of both lower extremities and left upper extremity joints. ASSESSMENT: A young male with accidental fall off a roof with fracture of midthoracic spinal processes and transverse process fractures of lumbar vertebrae and fracture of left rib cage and right scapula with mobility and self-care limitations. No clinical evidence of traumatic brain injury. RECOMMENDATIONS: To get him up as tolerated using abdominal binder as lumbar corset, to let him eat, to try him on ibuprofen muscle relaxant and oral pain medication and to ask Physical Therapy and Occupational Therapy to see him regularly. Hopefully, when his pain is better controlled, to let him go home with home health followup, to ask social worker masters to help with the discharge planning. He probably needs home health physical therapy and occupational therapy followup. Dr. Lemos and Dr. Colvin, I appreciate asking me to participate in the care of this interesting patient. I will be glad to follow him with you as needed for the rehabilitation. TIMMY ALCOCER MD DR: JUAN JOSÉ/dom JOB#: [id number] / [id number]
[2018-12-06 04:55] LABS: BASO % 0 % (0-3); EOS # 0.1 x10^3/uL (0.0-0.7); EOS % 1 % (0-3); HEMATOCRIT 35.6 % (39.0-53.0); HEMOGLOBIN 12.5 g/dL (13.0-17.5); LYMPH # 2.2 x10^3/uL (1.0-4.8); LYMPH % 39 % (24-48); MEAN CORPUSCULAR HEMOGLOBIN 30 pg (25-35); MEAN CORPUSCULAR HGB CONC 35 g/dL (31-37); MEAN CORPUSCULAR VOLUME 84 fL (79-100); MONO # 0.7 x10^3/uL (0.0-1.1); MONO % 12 % (0-9); NEUT # 2.6 x10^3uL (1.8-7.7); NEUT % 47 % (31-73); PLATELET COUNT 191 x10^3/uL (140-400); RED BLOOD COUNT 4.22 x10^6/uL (4.30-5.70); WHITE BLOOD COUNT 5.6 x10^3/uL (4.0-11.0)
[2018-12-06 05:11] LABS: CALCIUM 8.2 mg/dL (8.5-10.1); CREATININE 0.8 mg/dL (0.7-1.3); GFR 108.2; POTASSIUM 3.6 mmol/L (3.5-5.1)
[2018-12-06] MEDS: PANTOPRAZOLE 40 MG TABLET.DR. PO SCH (05:57)
[2018-12-06] MEDS: IBUPROFEN 400 MG TABLET. PO SCH ×2 (05:57→12:30)
[2018-12-06 07:00] VITALS: BP 110/59
[2018-12-06] MEDS: HYDROcodone/APAP 10/325 1 TAB TABLET PO PRN ×2 (08:57→14:01)
--- NOTE | 2018-12-06 09:07 | PDOC ---
PROGRESS NOTES Subjective Subjective No new complaints.He feels better overall. Objective Objective Vital Signs Date Time Temp Pulse Resp B/P (MAP) Pulse Ox O2 Delivery O2 Flow Rate FiO2 12/06/18 08:57 Room Air 12/06/18 07:00 98.2 69 18 110/59 (76) 96 98.2 Intake and Output 12/06/18 06:59 Intake Total 840 ml Output Total 900 ml Balance -60 ml Intake Oral 840 ml Output Urine Total 900 ml # Voids 3 Physical Exam Physical Exam He got up and walked without any assistance and he still protecting right shoulder to some extent but not as bad as yesterday. No tenderness noted over thoracic and lumbar spine area and he still had tenderness to palpation over right shoulder blade area. Assessment Assessment Problems Medical Problems: (1) Multiple transverse process fractures Status: Acute (2) Rib fractures Status: Acute (3) Scapula fracture Status: Acute Plan Plan of [facility] when medically stable with out patient follow up and social worker health services looking for arranging home health or out patient occupational therapy follow up to prevent any frozen shoulder. Comment Review of Relevant I have reviewed the following items fly (where applicable) has been applied. Labs Laboratory Tests Test 12/04/18 20:30 12/06/18 04:30 White Blood Count 21.9 x10^3/uL (4.0-11.0) 5.6 x10^3/uL (4.0-11.0) Red Blood Count 5.10 x10^6/uL (4.30-5.70) 4.22 x10^6/uL (4.30-5.70) Hemoglobin 14.5 g/dL (13.0-17.5) 12.5 g/dL (13.0-17.5) Hematocrit 42.9 % (39.0-53.0) 35.6 % (39.0-53.0) Mean Corpuscular Volume 84 fL (79-100) 84 fL (79-100) Mean Corpuscular Hemoglobin 29 pg (25-35) 30 pg (25-35) Mean Corpuscular Hemoglobin Concent 34 g/dL (31-37) 35 g/dL (31-37) Red Cell Distribution Width 13.5 % (11.5-14.5) 13.0 % (11.5-14.5) Platelet Count 272 x10^3/uL (140-400) 191 x10^3/uL (140-400) Neutrophils (%) (Auto) 87 % (31-73) 47 % (31-73) Lymphocytes (%) (Auto) 6 % (24-48) 39 % (24-48) Monocytes (%) (Auto) 7 % (0-9) 12 % (0-9) Eosinophils (%) (Auto) 0 % (0-3) 1 % (0-3) Basophils (%) (Auto) 0 % (0-3) 0 % (0-3) Neutrophils # (Auto) 19.0 x10^3uL (1.8-7.7) 2.6 x10^3uL (1.8-7.7) Lymphocytes # (Auto) 1.3 x10^3/uL (1.0-4.8) 2.2 x10^3/uL (1.0-4.8) Monocytes # (Auto) 1.6 x10^3/uL (0.0-1.1) 0.7 x10^3/uL (0.0-1.1) Eosinophils # (Auto) 0.0 x10^3/uL (0.0-0.7) 0.1 x10^3/uL (0.0-0.7) Basophils # (Auto) 0.0 x10^3/uL (0.0-0.2) 0.0 x10^3/uL (0.0-0.2) Segmented Neutrophils % 85 % (35-66) Band Neutrophils % 2 % (0-9) Lymphocytes % 9 % (24-48) Monocytes % 4 % (0-10) Platelet Estimate Adequate (ADEQUATE) Prothrombin Time 14.4 SEC (11.7-14.0) Prothromb Time International Ratio 1.2 (0.8-1.1) Sodium Level 134 mmol/L (136-145) 140 mmol/L (136-145) Potassium Level 3.7 mmol/L (3.5-5.1) 3.6 mmol/L (3.5-5.1) Chloride Level 97 mmol/L (98-107) 105 mmol/L (98-107) Carbon Dioxide Level 22 mmol/L (21-32) 26 mmol/L (21-32) Anion Gap 15 (6-14) 9 (6-14) Blood Urea Nitrogen 23 mg/dL (8-26) 14 mg/dL (8-26) Creatinine 1.5 mg/dL (0.7-1.3) 0.8 mg/dL (0.7-1.3) Estimated GFR (Cockcroft-Gault) 52.4 108.2 BUN/Creatinine Ratio 15 (6-20) Glucose Level 126 mg/dL (70-99) 100 mg/dL (70-99) Calcium Level 9.6 mg/dL (8.5-10.1) 8.2 mg/dL (8.5-10.1) Total Bilirubin 0.6 mg/dL (0.2-1.0) Aspartate Amino Transf (AST/SGOT) 54 U/L (15-37) Alanine Aminotransferase (ALT/SGPT) 56 U/L (16-63) Alkaline Phosphatase 116 U/L (46-116) Total Protein 7.3 g/dL (6.4-8.2) Albumin 3.8 g/dL (3.4-5.0) Albumin/Globulin Ratio 1.1 (1.0-1.7) Ethyl Alcohol Level < 10 mg/dL (0-10) Laboratory Tests Test 12/06/18 04:30 White Blood Count 5.6 x10^3/uL (4.0-11.0) Red Blood Count 4.22 x10^6/uL (4.30-5.70) Hemoglobin 12.5 g/dL (13.0-17.5) Hematocrit 35.6 % (39.0-53.0) Mean Corpuscular Volume 84 fL (79-100) Mean Corpuscular Hemoglobin 30 pg (25-35) Mean Corpuscular Hemoglobin Concent 35 g/dL (31-37) Red Cell Distribution Width 13.0 % (11.5-14.5) Platelet Count 191 x10^3/uL (140-400) Neutrophils (%) (Auto) 47 % (31-73) Lymphocytes (%) (Auto) 39 % (24-48) Monocytes (%) (Auto) 12 % (0-9) Eosinophils (%) (Auto) 1 % (0-3) Basophils (%) (Auto) 0 % (0-3) Neutrophils # (Auto) 2.6 x10^3uL (1.8-7.7) Lymphocytes # (Auto) 2.2 x10^3/uL (1.0-4.8) Monocytes # (Auto) 0.7 x10^3/uL (0.0-1.1) Eosinophils # (Auto) 0.1 x10^3/uL (0.0-0.7) Basophils # (Auto) 0.0 x10^3/uL (0.0-0.2) Sodium Level 140 mmol/L (136-145) Potassium Level 3.6 mmol/L (3.5-5.1) Chloride Level 105 mmol/L (98-107) Carbon Dioxide Level 26 mmol/L (21-32) Anion Gap 9 (6-14) Blood Urea Nitrogen 14 mg/dL (8-26) Creatinine 0.8 mg/dL (0.7-1.3) Estimated GFR (Cockcroft-Gault) 108.2 Glucose Level 100 mg/dL (70-99) Calcium Level 8.2 mg/dL (8.5-10.1) Medications Current Medications Fentanyl Citrate (Fentanyl 2ml Vial) 50 mcg 1X ONCE IV Last administered on 12/04/18at 21:22; Start 12/04/18 at 20:30; Stop 12/04/18 at 20:36; Status DC Iohexol (Omnipaque 300 Mg/ml) 75 ml 1X ONCE IV ; Start 12/04/18 at 21:30; Stop 12/04/18 at 21:31; Status DC Info (CONTRAST GIVEN -- Rx MONITORING) 1 each PRN DAILY PRN MC SEE COMMENTS; Start 12/04/18 at 21:45; Stop 12/06/18 at 21:44 Sodium Chloride 1,000 ml @ 1,000 mls/hr 1X ONCE IV Last administered on 12/04/18at 21:58; Start 12/04/18 at 21:45; Stop 12/04/18 at 22:44; Status DC Ondansetron HCl (Zofran) 4 mg PRN Q8HRS PRN IV NAUSEA/VOMITING Last administered on 12/05/18at 05:58; Start 12/04/18 at 23:15; Stop 12/05/18 at 23:14; Status DC Morphine Sulfate (Morphine Sulfate) 4 mg PRN Q2HR PRN IV PAIN Last administered on 12/05/18at 13:15; Start 12/04/18 at 23:15; Stop 12/05/18 at 23:14; Status DC Influenza Virus Vaccine (Afluria Trivalent [id number] Syringe) 0.5 ml ONCE ONCE VAX IM ; Start 12/05/18 at 03:00; Stop 12/05/18 at 03:01; Status UNV Sodium Chloride 1,000 ml @ 100 mls/hr Q10H IV Last administered on 12/06/18at 03:36; Start 12/05/18 at 06:00 Ibuprofen (Motrin) 800 mg TIDAC PO Last administered on 12/06/18at 05:57; Start 12/05/18 at 17:30 Acetaminophen/ Hydrocodone Bitart (Lortab 10/325) 1 tab PRN Q6HRS PRN PO MOD TO SEVERE PAIN Last administered on 12/06/18at 08:57; Start 12/05/18 at 17:15 Tizanidine HCl (Zanaflex) 4 mg PRN Q8HRS PRN PO MUSCLE SPASMS Last administered on 12/05/18at 22:42; Start 12/05/18 at 17:15 Acetaminophen (Tylenol) 1,000 mg PRN Q6HRS PRN PO MILD PAIN; Start 12/05/18 at 17:15 Pantoprazole Sodium (Protonix) 40 mg DAILYAC PO Last administered on 12/06/18at 05:57; Start 12/05/18 at 17:30 Oxycodone/ Acetaminophen (Percocet 5/325) 1 tab PRN Q4HRS PRN PO PAIN; Start 12/05/18 at 20:00 Oxycodone/ Acetaminophen (Percocet 5/325) 2 tab PRN Q4HRS PRN PO PAIN; Start 12/05/18 at 20:00 Active Scripts Active Reported No Known Medications Prior To Admisstion (Info) Each 1 Each MC 1X Vitals/I & O Vital Sign - Last 24 Hours 12/05/18 12/05/18 12/05/18 12/05/18 11:00 13:15 13:45 15:00 Temp 98.2 98.3 98.2 98.3 Pulse 60 66 Resp 18 18 B/P (MAP) 107/54 (71) 107/56 (73) Pulse Ox 93 93 93 96 O2 Delivery Room Air Room Air Room Air Room Air 12/05/18 12/05/18 12/05/18 12/05/18 19:30 20:00 22:42 23:35 Temp 98.6 98.1 98.6 98.1 Pulse 65 66 Resp 22 22 18 B/P (MAP) 124/76 (92) 114/50 (71) Pulse Ox 100 97 O2 Delivery Room Air Room Air Room Air Room Air 12/05/18 12/06/18 12/06/18 12/06/18 23:42 03:30 07:00 08:57 Temp 98.4 98.2 98.4 98.2 Pulse 60 69 Resp 20 18 18 B/P (MAP) 105/49 (67) 110/59 (76) Pulse Ox 98 96 O2 Delivery Room Air Room Air Room Air Room Air Intake and Output 12/05/18 12/05/18 12/06/18 14:59 22:59 06:59 Intake Total 300 ml 540 ml Output Total 900 ml Balance -900 ml 300 ml 540 ml TIMMY ALCOCER MD Dec 06, 2018 09:07
[2018-12-06 11:00] VITALS: BP 105/53
--- NOTE | 2018-12-06 12:14 | PDOC ---
PROGRESS NOTES Chief Complaint Chief Complaint T9-12 spinous process fracture L1-4 Transverse process fracture R scapular fracture L rib fracture History of Present Illness History of Present Illness Patient was seen sitting in his chair today. He states he has minor pain but he is ready to go home. Vitals Vitals Vital Signs Date Time Temp Pulse Resp B/P (MAP) Pulse Ox O2 Delivery O2 Flow Rate FiO2 12/06/18 11:00 98.0 74 18 105/53 (70) 100 Room Air 98.0 Physical Exam General: Alert, Oriented X3, Cooperative, No acute distress Heart: Regular rate, Normal S1, Normal S2, No murmurs Lungs: Clear (No wheezes, rales, or rhonchi) Abdomen: Soft, No tenderness, No masses Extremities: No edema, Normal pulses, No tenderness/swelling Skin: No rashes, No breakdown, No significant lesion Labs LABS Laboratory Tests Test 12/06/18 04:30 White Blood Count 5.6 x10^3/uL (4.0-11.0) Red Blood Count 4.22 x10^6/uL (4.30-5.70) Hemoglobin 12.5 g/dL (13.0-17.5) Hematocrit 35.6 % (39.0-53.0) Mean Corpuscular Volume 84 fL (79-100) Mean Corpuscular Hemoglobin 30 pg (25-35) Mean Corpuscular Hemoglobin Concent 35 g/dL (31-37) Red Cell Distribution Width 13.0 % (11.5-14.5) Platelet Count 191 x10^3/uL (140-400) Neutrophils (%) (Auto) 47 % (31-73) Lymphocytes (%) (Auto) 39 % (24-48) Monocytes (%) (Auto) 12 % (0-9) Eosinophils (%) (Auto) 1 % (0-3) Basophils (%) (Auto) 0 % (0-3) Neutrophils # (Auto) 2.6 x10^3uL (1.8-7.7) Lymphocytes # (Auto) 2.2 x10^3/uL (1.0-4.8) Monocytes # (Auto) 0.7 x10^3/uL (0.0-1.1) Eosinophils # (Auto) 0.1 x10^3/uL (0.0-0.7) Basophils # (Auto) 0.0 x10^3/uL (0.0-0.2) Sodium Level 140 mmol/L (136-145) Potassium Level 3.6 mmol/L (3.5-5.1) Chloride Level 105 mmol/L (98-107) Carbon Dioxide Level 26 mmol/L (21-32) Anion Gap 9 (6-14) Blood Urea Nitrogen 14 mg/dL (8-26) Creatinine 0.8 mg/dL (0.7-1.3) Estimated GFR (Cockcroft-Gault) 108.2 Glucose Level 100 mg/dL (70-99) Calcium Level 8.2 mg/dL (8.5-10.1) Review of Systems Review of Systems Patient is having some pain. He denies fevers, chills, nausea, vomiting, CP, SOB, and diarrhea. Assessment and Plan Assessmemt and Plan Problems Medical Problems: (1) Multiple transverse process fractures Status: Acute (2) Rib fractures Status: Acute (3) Scapula fracture Status: Acute Assessment: T9-12 spinous process fracture L1-4 Transverse process fracture R scapular fracture L rib fracture cocaine use Plan: No surgery recommended Pain management Dr. Ascencio consulted- recommend DC with home health when pain is controlled Neurosurgery consult General surgery consult Ortho consult Lortab 5mg script written for DC- in chart PT/OT Continue home meds F/u labs DVT prophylaxis DC home today Comment Review of Relevant I have reviewed the following items fly (where applicable) has been applied. Labs Laboratory Tests Test 12/04/18 20:30 12/06/18 04:30 White Blood Count 21.9 x10^3/uL (4.0-11.0) 5.6 x10^3/uL (4.0-11.0) Red Blood Count 5.10 x10^6/uL (4.30-5.70) 4.22 x10^6/uL (4.30-5.70) Hemoglobin 14.5 g/dL (13.0-17.5) 12.5 g/dL (13.0-17.5) Hematocrit 42.9 % (39.0-53.0) 35.6 % (39.0-53.0) Mean Corpuscular Volume 84 fL (79-100) 84 fL (79-100) Mean Corpuscular Hemoglobin 29 pg (25-35) 30 pg (25-35) Mean Corpuscular Hemoglobin Concent 34 g/dL (31-37) 35 g/dL (31-37) Red Cell Distribution Width 13.5 % (11.5-14.5) 13.0 % (11.5-14.5) Platelet Count 272 x10^3/uL (140-400) 191 x10^3/uL (140-400) Neutrophils (%) (Auto) 87 % (31-73) 47 % (31-73) Lymphocytes (%) (Auto) 6 % (24-48) 39 % (24-48) Monocytes (%) (Auto) 7 % (0-9) 12 % (0-9) Eosinophils (%) (Auto) 0 % (0-3) 1 % (0-3) Basophils (%) (Auto) 0 % (0-3) 0 % (0-3) Neutrophils # (Auto) 19.0 x10^3uL (1.8-7.7) 2.6 x10^3uL (1.8-7.7) Lymphocytes # (Auto) 1.3 x10^3/uL (1.0-4.8) 2.2 x10^3/uL (1.0-4.8) Monocytes # (Auto) 1.6 x10^3/uL (0.0-1.1) 0.7 x10^3/uL (0.0-1.1) Eosinophils # (Auto) 0.0 x10^3/uL (0.0-0.7) 0.1 x10^3/uL (0.0-0.7) Basophils # (Auto) 0.0 x10^3/uL (0.0-0.2) 0.0 x10^3/uL (0.0-0.2) Segmented Neutrophils % 85 % (35-66) Band Neutrophils % 2 % (0-9) Lymphocytes % 9 % (24-48) Monocytes % 4 % (0-10) Platelet Estimate Adequate (ADEQUATE) Prothrombin Time 14.4 SEC (11.7-14.0) Prothromb Time International Ratio 1.2 (0.8-1.1) Sodium Level 134 mmol/L (136-145) 140 mmol/L (136-145) Potassium Level 3.7 mmol/L (3.5-5.1) 3.6 mmol/L (3.5-5.1) Chloride Level 97 mmol/L (98-107) 105 mmol/L (98-107) Carbon Dioxide Level 22 mmol/L (21-32) 26 mmol/L (21-32) Anion Gap 15 (6-14) 9 (6-14) Blood Urea Nitrogen 23 mg/dL (8-26) 14 mg/dL (8-26) Creatinine 1.5 mg/dL (0.7-1.3) 0.8 mg/dL (0.7-1.3) Estimated GFR (Cockcroft-Gault) 52.4 108.2 BUN/Creatinine Ratio 15 (6-20) Glucose Level 126 mg/dL (70-99) 100 mg/dL (70-99) Calcium Level 9.6 mg/dL (8.5-10.1) 8.2 mg/dL (8.5-10.1) Total Bilirubin 0.6 mg/dL (0.2-1.0) Aspartate Amino Transf (AST/SGOT) 54 U/L (15-37) Alanine Aminotransferase (ALT/SGPT) 56 U/L (16-63) Alkaline Phosphatase 116 U/L (46-116) Total Protein 7.3 g/dL (6.4-8.2) Albumin 3.8 g/dL (3.4-5.0) Albumin/Globulin Ratio 1.1 (1.0-1.7) Ethyl Alcohol Level < 10 mg/dL (0-10) Laboratory Tests Test 12/06/18 04:30 White Blood Count 5.6 x10^3/uL (4.0-11.0) Red Blood Count 4.22 x10^6/uL (4.30-5.70) Hemoglobin 12.5 g/dL (13.0-17.5) Hematocrit 35.6 % (39.0-53.0) Mean Corpuscular Volume 84 fL (79-100) Mean Corpuscular Hemoglobin 30 pg (25-35) Mean Corpuscular Hemoglobin Concent 35 g/dL (31-37) Red Cell Distribution Width 13.0 % (11.5-14.5) Platelet Count 191 x10^3/uL (140-400) Neutrophils (%) (Auto) 47 % (31-73) Lymphocytes (%) (Auto) 39 % (24-48) Monocytes (%) (Auto) 12 % (0-9) Eosinophils (%) (Auto) 1 % (0-3) Basophils (%) (Auto) 0 % (0-3) Neutrophils # (Auto) 2.6 x10^3uL (1.8-7.7) Lymphocytes # (Auto) 2.2 x10^3/uL (1.0-4.8) Monocytes # (Auto) 0.7 x10^3/uL (0.0-1.1) Eosinophils # (Auto) 0.1 x10^3/uL (0.0-0.7) Basophils # (Auto) 0.0 x10^3/uL (0.0-0.2) Sodium Level 140 mmol/L (136-145) Potassium Level 3.6 mmol/L (3.5-5.1) Chloride Level 105 mmol/L (98-107) Carbon Dioxide Level 26 mmol/L (21-32) Anion Gap 9 (6-14) Blood Urea Nitrogen 14 mg/dL (8-26) Creatinine 0.8 mg/dL (0.7-1.3) Estimated GFR (Cockcroft-Gault) 108.2 Glucose Level 100 mg/dL (70-99) Calcium Level 8.2 mg/dL (8.5-10.1) Medications Current Medications Fentanyl Citrate (Fentanyl 2ml Vial) 50 mcg 1X ONCE IV Last administered on 12/04/18at 21:22; Start 12/04/18 at 20:30; Stop 12/04/18 at 20:36; Status DC Iohexol (Omnipaque 300 Mg/ml) 75 ml 1X ONCE IV ; Start 12/04/18 at 21:30; Stop 12/04/18 at 21:31; Status DC Info (CONTRAST GIVEN -- Rx MONITORING) 1 each PRN DAILY PRN MC SEE COMMENTS; Start 12/04/18 at 21:45; Stop 12/06/18 at 21:44 Sodium Chloride 1,000 ml @ 1,000 mls/hr 1X ONCE IV Last administered on 12/04/18at 21:58; Start 12/04/18 at 21:45; Stop 12/04/18 at 22:44; Status DC Ondansetron HCl (Zofran) 4 mg PRN Q8HRS PRN IV NAUSEA/VOMITING Last administered on 12/05/18at 05:58; Start 12/04/18 at 23:15; Stop 12/05/18 at 23:14; Status DC Morphine Sulfate (Morphine Sulfate) 4 mg PRN Q2HR PRN IV PAIN Last administered on 12/05/18at 13:15; Start 12/04/18 at 23:15; Stop 12/05/18 at 23:14; Status DC Influenza Virus Vaccine (Afluria Trivalent [id number] Syringe) 0.5 ml ONCE ONCE VAX IM ; Start 12/05/18 at 03:00; Stop 12/05/18 at 03:01; Status UNV Sodium Chloride 1,000 ml @ 100 mls/hr Q10H IV Last administered on 12/06/18at 03:36; Start 12/05/18 at 06:00 Ibuprofen (Motrin) 800 mg TIDAC PO Last administered on 12/06/18at 05:57; Start 12/05/18 at 17:30 Acetaminophen/ Hydrocodone Bitart (Lortab 10/325) 1 tab PRN Q6HRS PRN PO MOD TO SEVERE PAIN Last administered on 12/06/18at 08:57; Start 12/05/18 at 17:15 Tizanidine HCl (Zanaflex) 4 mg PRN Q8HRS PRN PO MUSCLE SPASMS Last administered on 12/05/18at 22:42; Start 12/05/18 at 17:15 Acetaminophen (Tylenol) 1,000 mg PRN Q6HRS PRN PO MILD PAIN; Start 12/05/18 at 17:15 Pantoprazole Sodium (Protonix) 40 mg DAILYAC PO Last administered on 12/06/18at 05:57; Start 12/05/18 at 17:30 Oxycodone/ Acetaminophen (Percocet 5/325) 1 tab PRN Q4HRS PRN PO PAIN; Start 12/05/18 at 20:00 Oxycodone/ Acetaminophen (Percocet 5/325) 2 tab PRN Q4HRS PRN PO PAIN; Start 12/05/18 at 20:00 Active Scripts Active Reported No Known Medications Prior To Admisstion (Info) Each 1 Each 1X Vitals/I & O Vital Sign - Last 24 Hours 12/05/18 12/05/18 12/05/18 12/05/18 13:15 13:45 15:00 19:30 Temp 98.3 98.6 98.3 98.6 Pulse 66 65 Resp 18 22 B/P (MAP) 107/56 (73) 124/76 (92) Pulse Ox 93 93 96 100 O2 Delivery Room Air Room Air Room Air Room Air 12/05/18 12/05/18 12/05/18 12/05/18 20:00 22:42 23:35 23:42 Temp 98.1 98.1 Pulse 66 Resp 22 18 20 B/P (MAP) 114/50 (71) Pulse Ox 97 O2 Delivery Room Air Room Air Room Air 12/06/18 12/06/18 12/06/18 12/06/18 03:30 07:00 08:57 10:24 Temp 98.4 98.2 98.4 98.2 Pulse 60 69 Resp 18 18 B/P (MAP) 105/49 (67) 110/59 (76) Pulse Ox 98 96 96 O2 Delivery Room Air Room Air Room Air Room Air 12/06/18 11:00 Temp 98.0 98.0 Pulse 74 Resp 18 B/P (MAP) 105/53 (70) Pulse Ox 100 O2 Delivery Room Air Intake and Output 12/05/18 12/05/18 12/06/18 15:00 23:00 07:00 Intake Total 300 ml 540 ml Output Total 900 ml Balance -900 ml 300 ml 540 ml MACARIO REED III DO Dec 06, 2018 12:14
--- NOTE | 2018-12-06 12:59 | PDOC3 ---
[facility]-Discharge Summary Date of Admission: Date of Admission: Dec 04, 2018 Date of Discharge: Date of Discharge: Dec 06, 2018 Admission Diagnosis: Problems: (1) Rib fractures (2) Scapula fracture (3) Rib fracture (4) Multiple transverse process fractures Discharge Diagnosis: Discharge Diagnosis: Resolving multiple fractures after falling off of an 8 foot ladder Consults: Consults: Orthopedics and general surgery Procedures: Procedures: None Hospital Course: Hospital Course: Patient is a middle-aged male who fell off a ladder about 8 foot tall He suffered a transverse process fracture scapular fracture and a clavicle fracture He was admitted we gave pain meds and IV fluids and did physical therapy No procedures are to be performed I saw and examined the patient this morning he looks great he was up in the chair smiling he is having some pain I'm leaving a prescription for when necessary Lortab and we plan to discharge Disposition: Disposition/Orders: D/C to Home Activity: Activity: Resume previous activity Diet: Diet: Regular Medications: Home Meds Reported Medications Info (NO KNOWN MEDICATIONS PRIOR TO ADMISSTION) Each, 1 EACH MC 1X for no medication, EACH 12/05/18 Scheduled Info (No Known Medications Prior To Admisstion), 1 EACH MC 1X, (Reported) Total Time: Total Time: 34 minutes MACARIO REED III, DO Dec 06, 2018 12:59
[2018-12-06] MEDS ORDERED: HYDR-3164 PO (13:05)
[2018-12-06] MEDS ORDERED: DOCU-109 PO (13:05)
--- NOTE | 2018-12-06 15:15 | NUR ---
Discharge instructions and prescriptions given to pt. Answered questions and concerns. Information about [facility] given to pt. Pt dc home accompanied by his cousin.
[2018-12-06 23:08] LABS: HEMOGLOBIN A1C 5.6 % (4.8-5.6)
[2018-12-23] MEDS ORDERED: NAPR500T8 PO (11:12)
== END 2018-12-06 15:15 | disposition home or self-care (01) | DRG 552 ==
LOC: ER 19:54 → 4 NORTH 23:00
PROVIDERS: ADMIT Internal Medicine; ATTEND Internal Medicine
DX: S32.019A Unspecified fracture of first lumbar vertebra, initial encounter for closed fracture (principal); S22.079A Unspecified fracture of T9-T10 vertebra, initial encounter for closed fracture; S22.32XA Fracture of one rib, left side, initial encounter for closed fracture; S22.089A Unspecified fracture of T11-T12 vertebra, initial encounter for closed fracture; S32.029A Unspecified fracture of second lumbar vertebra, initial encounter for closed fracture; S32.039A Unspecified fracture of third lumbar vertebra, initial encounter for closed fracture; S32.049A Unspecified fracture of fourth lumbar vertebra, initial encounter for closed fracture; S42.101A Fracture of unspecified part of scapula, right shoulder, initial encounter for closed fracture; S42.009A Fracture of unspecified part of unspecified clavicle, initial encounter for closed fracture; F14.90 Cocaine use, unspecified, uncomplicated; W11.XXXA Fall on and from ladder, initial encounter; Y93.89 Activity, other specified; Y92.89 Other specified places as the place of occurrence of the external cause; Y99.8 Other external cause status; Z82.49 Family history of ischemic heart disease and other diseases of the circulatory system
CPT/HCPCS: 36415; 70450; 71045; 71260; 72125; 72128; 72131; 73030; 74177; 80048; 80053; 83036; 85007; 85025; 85610; 96360; 99406; G0480; J2270; J2405; J3010; J7030; 97535; 99285-25

== ENCOUNTER 2018-12-21 14:04 | Inpatient (IN) | payer SELFPAY ==
[~2018-12-21] VITALS: Ht 170.2 cm; Wt 55.8 kg
[~2018-12-21 14:04] MED LIST: DOCU-109 PO; HYDR-3164 PO
--- NOTE | 2018-12-21 14:39 | PHYS DOC ---
Past Medical History Past Medical History: No Pertinent History Past Surgical History: No Surgical History Alcohol Use: None Drug Use: Cocaine Adult General Chief Complaint Chief Complaint: ELBOW PROBLEM HPI HPI Patient is a 38 year old male presents to the ED complaining of left elbow pain 2 days ago. Patient had a fall from 6 feet on December 04. States he fell on construction site into debris. Patient suffered multiple fractures (transverse process, rib and scapula) and was admitted to the hospital. States over the last 2 days he has noticed increasing swelling and redness to his left elbow. Patient also has a puncture wound to his left elbow. Describes the pain as sharp. Rates the pain as 6 out of 10. Family/Friend at bedside interpreting for patient. Denies new injury, weakness, paresthesias, chest pain, shortness of breath, night sweats or chills. Review of Systems Review of Systems Constitutional: Denies fever or chills [] Eyes: Denies change in visual acuity, redness, or eye pain [] HENT: Denies nasal congestion or sore throat [] Respiratory: Denies cough or shortness of breath [] Cardiovascular: No additional information not addressed in HPI [] GI: Denies abdominal pain, nausea, vomiting, bloody stools or diarrhea [] : Denies dysuria or hematuria [] Musculoskeletal: Complains of elbow pain. Denies back pain. Integument: Denies rash or skin lesions [] Neurologic: Denies headache, focal weakness or sensory changes [] All other systems were reviewed and found to be within normal limits, except as documented in this note. Current Medications Current Medications Current Medications Medications (Trade) Dose Ordered Sig/Samanta Start Time Stop Time Status Last Admin Dose Admin Piperacillin Sod/ Tazobactam Sod 3.375 gm/Sodium Chloride 50 ml @ 100 mls/hr 1X ONCE 12/21/18 16:15 12/21/18 16:44 Vancomycin HCl (Vanco Per Pharmacy) 1 each PRN DAILY PRN 12/21/18 16:15 UNV Vancomycin HCl 2 gm/Sodium Chloride 500 ml @ 250 mls/hr 1X ONCE 12/21/18 16:30 12/21/18 18:29 Allergies Allergies Allergies Coded Allergies Type Severity Reaction Last Updated Verified No Known Drug Allergies 12/04/18 No Physical Exam Physical Exam Constitutional: Well developed, well nourished, no acute distress, non-toxic appearance. [] HENT: Normocephalic, atraumatic Eyes: PERRLA, EOMI, conjunctiva normal, no discharge. [] Neck: Normal range of motion, no tenderness, supple, no stridor. [] Cardiovascular:Heart rate regular rhythm, no murmur [] Lungs & Thorax: Bilateral breath sounds clear to auscultation [] Skin: Warm, dry, no erythema, no rash. [] Back: No tenderness, no CVA tenderness. [] Extremities: Mild left posterior elbow tenderness/swelling and erythema s urrounding puncture wound. Pain with extension. NV intact. no cyanosis, no clubbing, ROM intact, no edema. [] Neurologic: Alert and oriented X 3, normal motor function, normal sensory function, no focal deficits noted. [] Psychologic: Affect normal, judgement normal, mood normal. [] Current Patient Data Vital Signs Vital Signs Date Time Temp Pulse Resp B/P (MAP) Pulse Ox O2 Delivery O2 Flow Rate FiO2 12/21/18 14:20 98.1 67 16 153/78 (103) 96 Room Air 98.1 Lab Values Laboratory Tests Test 12/21/18 14:43 White Blood Count 12.4 x10^3/uL (4.0-11.0) H Red Blood Count 4.96 x10^6/uL (4.30-5.70) Hemoglobin 14.4 g/dL (13.0-17.5) Hematocrit 42.2 % (39.0-53.0) Mean Corpuscular Volume 85 fL (79-100) Mean Corpuscular Hemoglobin 29 pg (25-35) Mean Corpuscular Hemoglobin Concent 34 g/dL (31-37) Red Cell Distribution Width 13.8 % (11.5-14.5) Platelet Count 502 x10^3/uL (140-400) H Neutrophils (%) (Auto) 73 % (31-73) Lymphocytes (%) (Auto) 18 % (24-48) L Monocytes (%) (Auto) 9 % (0-9) Eosinophils (%) (Auto) 0 % (0-3) Basophils (%) (Auto) 1 % (0-3) Neutrophils # (Auto) 9.0 x10^3uL (1.8-7.7) H Lymphocytes # (Auto) 2.2 x10^3/uL (1.0-4.8) Monocytes # (Auto) 1.1 x10^3/uL (0.0-1.1) Eosinophils # (Auto) 0.0 x10^3/uL (0.0-0.7) Basophils # (Auto) 0.1 x10^3/uL (0.0-0.2) Erythrocyte Sedimentation Rate 41 (0-15) H Sodium Level 138 mmol/L (136-145) Potassium Level 4.2 mmol/L (3.5-5.1) Chloride Level 101 mmol/L (98-107) Carbon Dioxide Level 29 mmol/L (21-32) Anion Gap 8 (6-14) Blood Urea Nitrogen 9 mg/dL (8-26) Creatinine 0.8 mg/dL (0.7-1.3) Estimated GFR (Cockcroft-Gault) 108.2 BUN/Creatinine Ratio 11 (6-20) Glucose Level 94 mg/dL (70-99) Calcium Level 9.0 mg/dL (8.5-10.1) Total Bilirubin 0.4 mg/dL (0.2-1.0) Aspartate Amino Transferase (AST) 41 U/L (15-37) H Alanine Aminotransferase (ALT) 27 U/L (16-63) Alkaline Phosphatase 318 U/L (46-116) H C-Reactive Protein, Quantitative 13.9 mg/L (0-3.3) H Total Protein 8.1 g/dL (6.4-8.2) Albumin 3.4 g/dL (3.4-5.0) Albumin/Globulin Ratio 0.7 (1.0-1.7) L Laboratory Tests 12/21/18 14:43 Laboratory Tests 12/21/18 14:43 EKG EKG [] Radiology/Procedures Radiology/Procedures PROCEDURE: ELBOW LEFT 3V Left elbow, 3 views, 12/21/2018: HISTORY: Swelling, possible infection No fracture or destructive bony lesion is seen. There is mild tendinous calcification at the triceps tendon insertion site upon the olecranon process. No joint effusion is seen. There is moderate diffuse subcutaneous edema. IMPRESSION: No acute bony abnormality is detected. [] Course & Med Decision Making Course & Med Decision Making Pertinent Labs and Imaging studies reviewed. (See chart for details) Left elbow cellulitis/puncture wound. Tetanus UTD. Patient given vancomycin and zosyn in the ED. []Discussed case with hospitalist, Dr. Colvin. Agrees to admission and further management of patient. Patient stable for admission. Dragon Disclaimer Dragon Disclaimer This electronic medical record was generated, in whole or in part, using a voice recognition dictation system. Departure Departure Impression: Primary Impression: Cellulitis of left elbow Disposition: ADMITTED INPATIENT Admitting Physician: Sonia Colvin Condition: STABLE Referrals: NO PCP (PCP) GUANAKITO DIGGS December 21, 2018 14:38
[2018-12-21 14:51] LABS: BASO # 0.1 x10^3/uL (0.0-0.2); BASO % 1 % (0-3); EOS % 0 % (0-3); HEMATOCRIT 42.2 % (39.0-53.0); HEMOGLOBIN 14.4 g/dL (13.0-17.5); LYMPH # 2.2 x10^3/uL (1.0-4.8); LYMPH % 18 % (24-48); MEAN CORPUSCULAR HEMOGLOBIN 29 pg (25-35); MEAN CORPUSCULAR HGB CONC 34 g/dL (31-37); MEAN CORPUSCULAR VOLUME 85 fL (79-100); MONO # 1.1 x10^3/uL (0.0-1.1); MONO % 9 % (0-9); NEUT % 73 % (31-73); PLATELET COUNT 502 x10^3/uL (140-400); RED BLOOD COUNT 4.96 x10^6/uL (4.30-5.70); RED CELL DISTRIBUTION WIDTH 13.8 % (11.5-14.5); WHITE BLOOD COUNT 12.4 x10^3/uL (4.0-11.0)
--- NOTE | 2018-12-21 14:53 | RAD ---
Left elbow, 3 views, 12/21/2018: HISTORY: Swelling, possible infection No fracture or destructive bony lesion is seen. There is mild tendinous calcification at the triceps tendon insertion site upon the olecranon process. No joint effusion is seen. There is moderate diffuse subcutaneous edema. IMPRESSION: No acute bony abnormality is detected. Electronically signed by: Joaquín Castaneda MD (12/21/2018 2:50 PM) [facility]
[2018-12-21 15:05] LABS: CREATININE 0.8 mg/dL (0.7-1.3); GFR 108.2; POTASSIUM 4.2 mmol/L (3.5-5.1)
[2018-12-21 15:09] LABS: ALBUMIN 3.4 g/dL (3.4-5.0); ALBUMIN/GLOBULIN RATIO 0.7 (1.0-1.7); C-REACTIVE PROTEIN 13.9 mg/L (0-3.3); TOTAL BILIRUBIN 0.4 mg/dL (0.2-1.0); TOTAL PROTEIN 8.1 g/dL (6.4-8.2)
[2018-12-21] MEDS ORDERED: PIPERACILLIN/TAZOBACTAM 3.375 GM in IV NORMAL SALINE 50ML 50 ML IV ONE (16:15)
[2018-12-21] MEDS ORDERED: VANCOMYCIN PER PHARMACY MC PRN (16:15)
[2018-12-21] MEDS ORDERED: VANCOMYCIN 2 GM in IV NORMAL SALINE 500ML BAG 500 ML IV ONE (16:30)
[2018-12-21] MEDS ORDERED: ACETAMINOPHEN 325 MG TABLET. PO PRN (16:30)
[2018-12-21] MEDS ORDERED: MORPHINE SULFATE 2 MG/ML VIAL. IV PRN (16:30)
[2018-12-21] MEDS ORDERED: ONDANSETRON PF 4 MG/2 ML VIAL. IV PRN (16:30)
--- NOTE | 2018-12-21 17:21 | NUR ---
Pharmacy Vancomycin Dosing Note S:Consulted to monitor and dose vancomycin started 12/21/18. O:DIEGO ALLEN is a 38 year old M with cellulitis of the elbow. Height: 5 feet, 7 inches Weight: 121.6 kg Dosing Weight: Actual Other Antibiotics: ZOSYN X1 IN ER LABS: Last BUN: 9 Last Creatinine: 0.8 Creatinine Clearance: > 100 mL/min Last WBC: 12.4 Last Procalcitonin: - Tmax (past 24 hours): 98.1 A: Patient requires vancomycin for cellulitis of elbow, goal trough 10-20 mcg/ml. His SCr is 0.8 with an eCrCl of > 100 ml/min. Initiate the following: P: 1. Initiate Vancomycin 2000 mg IV x 1 dose, then 1500 mg IV q8h 2. Follow up Trough level on 12/22/18 at 1530 3. Pharmacy will continue to monitor, follow and adjust therapy as needed. [facility], 12/21/18 [id number]
[2018-12-21] MEDS ORDERED: C.DIFF MED SCREEN BY RX. MC ONE (17:45)
[2018-12-21 19:00] VITALS: BP 125/58
--- NOTE | 2018-12-21 19:19 | PDOC1 ---
History and Physical Date of Admission: Date of Admission DATE: 12/21/18 TIME: 19:17 Chief Complaint: Problems: (1) Cellulitis of left elbow (2) Rib fracture Chief Complain: Elbow pain and drainage History of Present Illness: HPI: Patient had a fall from 6 feet on December 04. States he fell on construction site into debris. Patient suffered multiple fractures (transverse process, rib and scapula) and was admitted to the hospital He now presents to the emergency room complaining of left elbow pain and d rainage Rated at 10 out 10 Has associated weakness Been occurring for several days [id number] meds do not help I discussed the case with the ER physician were going to admit the patient give him some IV antibiotics and consult infectious disease and orthopedics. 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 Current Medications: Current Medications Current Medications Vancomycin HCl (Vanco Per Pharmacy) 1 each PRN DAILY PRN MC SEE COMMENTS Last administered on 12/21/18at 17:21; Start 12/21/18 at 16:15 Piperacillin Sod/ Tazobactam Sod 3.375 gm/Sodium Chloride 50 ml @ 100 mls/hr 1X ONCE IV Last administered on 12/21/18at 16:15; Start 12/21/18 at 16:15; Stop 12/21/18 at 16:44; Status DC Vancomycin HCl 2 gm/Sodium Chloride 500 ml @ 250 mls/hr 1X ONCE IV Last administered on 12/21/18at 16:35; Start 12/21/18 at 16:30; Stop 12/21/18 at 18:29; Status DC Ondansetron HCl (Zofran) 4 mg PRN Q8HRS PRN IV NAUSEA/VOMITING; Start 12/21/18 at 16:30; Stop 12/22/18 at 16:29 Morphine Sulfate (Morphine Sulfate) 2 mg PRN Q2HR PRN IV PAIN; Start 12/21/18 at 16:30; Stop 12/22/18 at 16:29 Acetaminophen (Tylenol) 650 mg PRN Q4HRS PRN PO FEVER; Start 12/21/18 at 16:30; Stop 12/22/18 at 16:29 Vancomycin HCl 1.5 gm/Sodium Chloride 500 ml @ 250 mls/hr Q8H IV ; Start 12/22/18 at 00:00 Vancomycin HCl (Vancomycin Trough Level) 1 each 1X ONCE MC ; Start 12/22/18 at 15:30; Stop 12/22/18 at 15:31 Pharmacy Consult (C.diff Med Screen By Rx) 1 each 1X ONCE MC ; Start 12/21/18 at 17:45; Stop 12/21/18 at 17:46; Status UNV Lactobacillus Rhamnosus (Culturelle) 1 cap BID PO ; Start 12/21/18 at 21:00 Acetaminophen/ Hydrocodone Bitart (Lortab 5/325) 1 tab PRN Q6HRS PRN PO PAIN; Start 12/21/18 at 18:45 Active Scripts Active Reported Colace (Docusate Sodium) 100 Mg Capsule 1 Cap PO BID PRN [place] 5-325 Tablet (Acetaminophen/Hydrocodone Bitart) 1 Each Tablet 1 Tab PO PRN Q6HRS PRN No Known Medications Prior To Admisstion (Info) Each 1 Each MC 1X ROS: Review of Systems Review of System REVIEW OF SYSTEMS: GENERAL: Denies weakness SKIN: No bruising, hair changes or rashes. EYES: No blurred, double or loss of vision. NOSE AND THROAT: No history of nosebleeds, hoarseness or sore throat. HEART: No history of palpitations, chest pain or shortness of breath on exertion. LUNGS: Denies cough, hemoptysis, wheezing or shortness of breath. GASTROINTESTINAL: Denies changes in appetite, nausea, vomiting, diarrhea or constipation. GENITOURINARY: No history of frequency, urgency, hesitancy or nocturia. NEUROLOGIC: Denies history of numbness, tingling, tremor or weakness. PSYCHIATRIC: No history of panic, anxiety or depression. ENDOCRINE: No history of heat or cold intolerance, polyuria or polydipsia. EXTREMITIES: He complains of left elbow pain and drainage Physical Exam: Vital Signs: Vital Signs Date Time Temp Pulse Resp B/P (MAP) Pulse Ox O2 Delivery O2 Flow Rate FiO2 12/21/18 17:30 Room Air 12/21/18 14:20 98.1 67 16 153/78 (103) 96 98.1 Physcial Exam: GEN.: No apparent distress. Alert and oriented. HEENT: Head is normocephalic, atraumatic NECK: Supple, no JVD LUNGS: Clear to auscultation without rhonchi or wheezing HEART: RRR, S1, S2 present. Peripheral pulses intact ABDOMEN: Soft, nontender. Positive bowel sounds no organomegaly EXTREMITIES: Left elbow has some swelling erythema and drainage NEUROLOGIC: Normal speech, normal tone. A&O x 3 PSYCHIATRIC: Normal affect, normal mood. Stable SKIN: No ulcerations or rashes VASCULAR: Good capillary refill Labs: Labs: Laboratory Tests Test 12/21/18 14:43 White Blood Count 12.4 x10^3/uL (4.0-11.0) Red Blood Count 4.96 x10^6/uL (4.30-5.70) Hemoglobin 14.4 g/dL (13.0-17.5) Hematocrit 42.2 % (39.0-53.0) Mean Corpuscular Volume 85 fL (79-100) Mean Corpuscular Hemoglobin 29 pg (25-35) Mean Corpuscular Hemoglobin Concent 34 g/dL (31-37) Red Cell Distribution Width 13.8 % (11.5-14.5) Platelet Count 502 x10^3/uL (140-400) Neutrophils (%) (Auto) 73 % (31-73) Lymphocytes (%) (Auto) 18 % (24-48) Monocytes (%) (Auto) 9 % (0-9) Eosinophils (%) (Auto) 0 % (0-3) Basophils (%) (Auto) 1 % (0-3) Neutrophils # (Auto) 9.0 x10^3uL (1.8-7.7) Lymphocytes # (Auto) 2.2 x10^3/uL (1.0-4.8) Monocytes # (Auto) 1.1 x10^3/uL (0.0-1.1) Eosinophils # (Auto) 0.0 x10^3/uL (0.0-0.7) Basophils # (Auto) 0.1 x10^3/uL (0.0-0.2) Erythrocyte Sedimentation Rate 41 (0-15) Sodium Level 138 mmol/L (136-145) Potassium Level 4.2 mmol/L (3.5-5.1) Chloride Level 101 mmol/L (98-107) Carbon Dioxide Level 29 mmol/L (21-32) Anion Gap 8 (6-14) Blood Urea Nitrogen 9 mg/dL (8-26) Creatinine 0.8 mg/dL (0.7-1.3) Estimated GFR (Cockcroft-Gault) 108.2 BUN/Creatinine Ratio 11 (6-20) Glucose Level 94 mg/dL (70-99) Calcium Level 9.0 mg/dL (8.5-10.1) Total Bilirubin 0.4 mg/dL (0.2-1.0) Aspartate Amino Transf (AST/SGOT) 41 U/L (15-37) Alanine Aminotransferase (ALT/SGPT) 27 U/L (16-63) Alkaline Phosphatase 318 U/L (46-116) C-Reactive Protein, Quantitative 13.9 mg/L (0-3.3) Total Protein 8.1 g/dL (6.4-8.2) Albumin 3.4 g/dL (3.4-5.0) Albumin/Globulin Ratio 0.7 (1.0-1.7) Laboratory Tests Test 12/21/18 14:43 White Blood Count 12.4 x10^3/uL (4.0-11.0) Red Blood Count 4.96 x10^6/uL (4.30-5.70) Hemoglobin 14.4 g/dL (13.0-17.5) Hematocrit 42.2 % (39.0-53.0) Mean Corpuscular Volume 85 fL (79-100) Mean Corpuscular Hemoglobin 29 pg (25-35) Mean Corpuscular Hemoglobin Concent 34 g/dL (31-37) Red Cell Distribution Width 13.8 % (11.5-14.5) Platelet Count 502 x10^3/uL (140-400) Neutrophils (%) (Auto) 73 % (31-73) Lymphocytes (%) (Auto) 18 % (24-48) Monocytes (%) (Auto) 9 % (0-9) Eosinophils (%) (Auto) 0 % (0-3) Basophils (%) (Auto) 1 % (0-3) Neutrophils # (Auto) 9.0 x10^3uL (1.8-7.7) Lymphocytes # (Auto) 2.2 x10^3/uL (1.0-4.8) Monocytes # (Auto) 1.1 x10^3/uL (0.0-1.1) Eosinophils # (Auto) 0.0 x10^3/uL (0.0-0.7) Basophils # (Auto) 0.1 x10^3/uL (0.0-0.2) Erythrocyte Sedimentation Rate 41 (0-15) Sodium Level 138 mmol/L (136-145) Potassium Level 4.2 mmol/L (3.5-5.1) Chloride Level 101 mmol/L (98-107) Carbon Dioxide Level 29 mmol/L (21-32) Anion Gap 8 (6-14) Blood Urea Nitrogen 9 mg/dL (8-26) Creatinine 0.8 mg/dL (0.7-1.3) Estimated GFR (Cockcroft-Gault) 108.2 BUN/Creatinine Ratio 11 (6-20) Glucose Level 94 mg/dL (70-99) Calcium Level 9.0 mg/dL (8.5-10.1) Total Bilirubin 0.4 mg/dL (0.2-1.0) Aspartate Amino Transf (AST/SGOT) 41 U/L (15-37) Alanine Aminotransferase (ALT/SGPT) 27 U/L (16-63) Alkaline Phosphatase 318 U/L (46-116) C-Reactive Protein, Quantitative 13.9 mg/L (0-3.3) Total Protein 8.1 g/dL (6.4-8.2) Albumin 3.4 g/dL (3.4-5.0) Albumin/Globulin Ratio 0.7 (1.0-1.7) Images: Images Left elbow x-ray was negative Assessment/Plan Assessment/Plan Left elbow trauma with cellulitis and possible abscess Plan IV antibiotics Consult ID Consult orthopedics When necessary narcotics DVT prophylaxis Home meds PT OT MACARIO REED III DO December 21, 2018 19:19
[2018-12-21] MEDS: HYDROcodone/APAP 5/325MG 1 TAB TABLET PO PRN (19:44)
[2018-12-21] MEDS: LACTOBACILLUS RHAMNOSUS GG 1 CAPSULE. PO SCH (21:58)
[2018-12-21 23:00] VITALS: BP 123/60
[2018-12-21] MEDS: VANCOMYCIN 1.5 GM in IV NORMAL SALINE 500ML BAG 500 ML IV SCH (23:41)
[2018-12-22] MEDS: HYDROcodone/APAP 5/325MG 1 TAB TABLET PO PRN ×4 (01:52→20:52)
[2018-12-22 03:00] VITALS: BP 124/61
[2018-12-22 05:34] LABS: BASO % 0 % (0-3); EOS % 0 % (0-3); HEMATOCRIT 38.6 % (39.0-53.0); HEMOGLOBIN 13.4 g/dL (13.0-17.5); LYMPH % 19 % (24-48); MEAN CORPUSCULAR HEMOGLOBIN 30 pg (25-35); MEAN CORPUSCULAR HGB CONC 35 g/dL (31-37); MEAN CORPUSCULAR VOLUME 85 fL (79-100); MONO % 9 % (0-9); NEUT # 7.6 x10^3uL (1.8-7.7); NEUT % 71 % (31-73); PLATELET COUNT 425 x10^3/uL (140-400); RED BLOOD COUNT 4.55 x10^6/uL (4.30-5.70); RED CELL DISTRIBUTION WIDTH 14.1 % (11.5-14.5); WHITE BLOOD COUNT 10.6 x10^3/uL (4.0-11.0)
[2018-12-22 06:06] LABS: ALBUMIN 2.8 g/dL (3.4-5.0); ALBUMIN/GLOBULIN RATIO 0.7 (1.0-1.7); CALCIUM 8.6 mg/dL (8.5-10.1); CREATININE 0.8 mg/dL (0.7-1.3); GFR 108.2; TOTAL BILIRUBIN 0.6 mg/dL (0.2-1.0); TOTAL PROTEIN 6.9 g/dL (6.4-8.2)
[2018-12-22 07:00] VITALS: BP 126/69
[2018-12-22] MEDS: LACTOBACILLUS RHAMNOSUS GG 1 CAPSULE. PO SCH ×2 (08:44→20:50)
[2018-12-22] MEDS: VANCOMYCIN 1.5 GM in IV NORMAL SALINE 500ML BAG 500 ML IV SCH (08:45)
[2018-12-22] MEDS ORDERED: ONDANSETRON PF 4 MG/2 ML VIAL. IV PRN (09:15)
[2018-12-22] MEDS ORDERED: ONDANSETRON ODT 4 MG TAB.RAPDIS. PO PRN (09:15)
--- NOTE | 2018-12-22 09:33 | PDOC2 ---
CONSULT Date of Consult Date of Consult DATE: 12/22/18 TIME: 09:28 Reason for Consult Reason for Consult: Left elbow cellulitis Referring Physician Referring Physician: Vinicius Identification/Chief Complaint Chief Complaint Left elbow pain Source Source: Patient History of Present Illness Reason for Visit: Patient is a very pleasant 38-year-old gentleman who had a fall from a height on December 04. He may have struck his elbow on the fall. He suffered rib and transverse process fractures. He was admitted for worsening redness and some apparent drainage over the past couple days at his left elbow. He tells me his left elbow hurts, he denies pain elsewhere other on his left upper extremity. There has been a little drainage but none lately. His elbow has not been getting progressively more swollen. His pain is worse with use of his elbow or pressure over the posterior aspect of his elbow. Denies any numbness or tingling. Past Medical History Cardiovascular: No pertinent hx Pulmonary: No pertinent hx Past Surgical History Past Surgical History: Other Family History Family History: Family History Unknown Social History ALCOHOL: social Drugs: Cocaine Lives: Alone Current Problem List Problem List Problems Medical Problems: (1) Cellulitis of left elbow Status: Acute Current Medications Current Medications Current Medications Vancomycin HCl (Vanco Per Pharmacy) 1 each PRN DAILY PRN MC SEE COMMENTS Last administered on 12/21/18at 17:21; Start 12/21/18 at 16:15 Piperacillin Sod/ Tazobactam Sod 3.375 gm/Sodium Chloride 50 ml @ 100 mls/hr 1X ONCE IV Last administered on 12/21/18at 16:15; Start 12/21/18 at 16:15; Stop 12/21/18 at 16:44; Status DC Vancomycin HCl 2 gm/Sodium Chloride 500 ml @ 250 mls/hr 1X ONCE IV Last ad ministered on 12/21/18at 16:35; Start 12/21/18 at 16:30; Stop 12/21/18 at 18:29; Status DC Ondansetron HCl (Zofran) 4 mg PRN Q8HRS PRN IV NAUSEA/VOMITING; Start 12/21/18 at 16:30; Stop 12/22/18 at 16:29 Morphine Sulfate (Morphine Sulfate) 2 mg PRN Q2HR PRN IV PAIN; Start 12/21/18 at 16:30; Stop 12/22/18 at 16:29 Acetaminophen (Tylenol) 650 mg PRN Q4HRS PRN PO FEVER; Start 12/21/18 at 16:30; Stop 12/22/18 at 16:29 Vancomycin HCl 1.5 gm/Sodium Chloride 500 ml @ 250 mls/hr Q8H IV Last administered on 12/22/18at 08:45; Start 12/22/18 at 00:00 Vancomycin HCl (Vancomycin Trough Level) 1 each 1X ONCE MC ; Start 12/22/18 at 15:30; Stop 12/22/18 at 15:31 Pharmacy Consult (C.diff Med Screen By Rx) 1 each 1X ONCE MC ; Start 12/21/18 at 17:45; Stop 12/21/18 at 17:46; Status UNV Lactobacillus Rhamnosus (Culturelle) 1 cap BID PO Last administered on 12/22/18at 08:44; Start 12/21/18 at 21:00 Acetaminophen/ Hydrocodone Bitart (Lortab 5/325) 1 tab PRN Q6HRS PRN PO PAIN Last administered on 12/22/18at 08:45; Start 12/21/18 at 18:45 Ondansetron HCl (Zofran) 4 mg PRN Q6HRS PRN IV NAUSEA/VOMITING; Start 12/22/18 at 09:15 Ondansetron HCl (Zofran Odt) 4 mg PRN Q6HRS PRN PO NAUSEA/VOMITING; Start 12/22/18 at 09:15 Active Scripts Active Reported Colace (Docusate Sodium) 100 Mg Capsule 1 Cap PO BID PRN [place] 5-325 Tablet (Acetaminophen/Hydrocodone Bitart) 1 Each Tablet 1 Tab PO PRN Q6HRS PRN No Known Medications Prior To Admisstion (Info) Each 1 Each MC 1X Allergies Allergies: Coded Allergies: No Known Drug Allergies (Unverified , 12/04/18) ROS General: No: Chills, Night Sweats, Fatigue, Malaise, Appetite, Other PSYCHOLOGICAL ROS: No: Anxiety, Behavioral Disorder, Concentration difficultie, Decreased libido, Depression, Disorientation, Hallucinations, Hostility, Irritablity, Memory difficulties, Mood Swings, Obsessive thoughts, Physical abuse, Sexual abuse, Sleep disturbances, Suicidal ideation, Other Eyes: No Blurry vision, No Decreased vision, No Double vision, No Dry eyes, No Excessive tearing, No Eye Pain, No Itchy Eyes, No Loss of vision, No Photophobia, No Scotomata, No Uses contacts, No Uses glasses, No Other HEENT: No: Heacaches, Visual Changes, Hearing change, Nasal congestion, Nasal discharge, Oral lesions, Sinus pain, Sore Throat, Epistaxis, Sneezing, Snoring, Tinnitus, Vertigo, Vocal changes, Other ALLERGY AND IMMUNOLOGY: No: Hives, Insect Bite Sensitivity, Itchy/Watery Eyes, Nasal Congestion, Post Nasal Drip, Seasonal Allergies, Other Hematological and Lymphatic: No: Bleeding Problems, Blood Clots, Blood Transfusions, Brusing, Night Sweats, Pallor, Swollen Lymph Nodes, Other Respiratory: No: Cough, Hemoptysis, Orthopnea, Pleuritic Pain, Shortness of breath, SOB with excertion, Sputum Changes, Stridor, Tachypnea, Wheezing, Other Cardiovascular: yes Chest Pain, yes Other (he has some pain, it has been improving over his chest from the fall) Gastrointestinal: No Nausea, No Vomiting, No Abdominal Pain, No Diarrhea, No Constipation, No Melena, No Hematochezia, No Other Genitourinary: No Dysuria, No Frequency, No Incontinence, No Hematuria, No Retention, No Discharge, No Urgency, No Pain, No Flank Pain, No Other, No , No , No , No , No , No , No Musculoskeletal: Yes Joint Swelling Neurological: No Behavorial Changes, No Bowel/Bladder ControlChng, No Confusion, No Dizziness, No Gait Disturbance, No Headaches, No Impaired Coord/balance, No Memory Loss, No Numbness/Tingling, No Seizures, No Speech Problems, No Tremors, No Visual Changes, No Weakness, No Other Skin: Yes Skin Lesion Changes Physical Exam General: Alert, Oriented X3 HEENT: Atraumatic, EOMI Lungs: Other (respirations are unlabored with symmetric chest rise) Abdomen: Soft, No tenderness Extremities: No edema, Normal pulses Neuro: Normal speech, Strength at 5/5 X4 ext, Sensation intact Psych/Mental Status: Mental status NL, Mood NL, Other MUSCULOSKELETAL: Other (he has cellulitic change and mild bursitis present over his left elbow. There is a dime size area of eschar. I'm unable to express any purulence. He has near full range of motion in his elbow. No tenderness at shoulder wrist or hand on his left side.) Vitals VITALS Vital Signs Date Time Temp Pulse Resp B/P (MAP) Pulse Ox O2 Delivery O2 Flow Rate FiO2 12/22/18 08:45 Room Air 12/22/18 07:00 98.4 69 16 126/69 (88) 97 98.4 Labs Labs Laboratory Tests Test 12/21/18 14:43 12/22/18 04:45 White Blood Count 12.4 x10^3/uL (4.0-11.0) 10.6 x10^3/uL (4.0-11.0) Red Blood Count 4.96 x10^6/uL (4.30-5.70) 4.55 x10^6/uL (4.30-5.70) Hemoglobin 14.4 g/dL (13.0-17.5) 13.4 g/dL (13.0-17.5) Hematocrit 42.2 % (39.0-53.0) 38.6 % (39.0-53.0) Mean Corpuscular Volume 85 fL (79-100) 85 fL (79-100) Mean Corpuscular Hemoglobin 29 pg (25-35) 30 pg (25-35) Mean Corpuscular Hemoglobin Concent 34 g/dL (31-37) 35 g/dL (31-37) Red Cell Distribution Width 13.8 % (11.5-14.5) 14.1 % (11.5-14.5) Platelet Count 502 x10^3/uL (140-400) 425 x10^3/uL (140-400) Neutrophils (%) (Auto) 73 % (31-73) 71 % (31-73) Lymphocytes (%) (Auto) 18 % (24-48) 19 % (24-48) Monocytes (%) (Auto) 9 % (0-9) 9 % (0-9) Eosinophils (%) (Auto) 0 % (0-3) 0 % (0-3) Basophils (%) (Auto) 1 % (0-3) 0 % (0-3) Neutrophils # (Auto) 9.0 x10^3uL (1.8-7.7) 7.6 x10^3uL (1.8-7.7) Lymphocytes # (Auto) 2.2 x10^3/uL (1.0-4.8) 2.0 x10^3/uL (1.0-4.8) Monocytes # (Auto) 1.1 x10^3/uL (0.0-1.1) 1.0 x10^3/uL (0.0-1.1) Eosinophils # (Auto) 0.0 x10^3/uL (0.0-0.7) 0.0 x10^3/uL (0.0-0.7) Basophils # (Auto) 0.1 x10^3/uL (0.0-0.2) 0.0 x10^3/uL (0.0-0.2) Erythrocyte Sedimentation Rate 41 (0-15) Sodium Level 138 mmol/L (136-145) 137 mmol/L (136-145) Potassium Level 4.2 mmol/L (3.5-5.1) 4.0 mmol/L (3.5-5.1) Chloride Level 101 mmol/L (98-107) 102 mmol/L (98-107) Carbon Dioxide Level 29 mmol/L (21-32) 26 mmol/L (21-32) Anion Gap 8 (6-14) 9 (6-14) Blood Urea Nitrogen 9 mg/dL (8-26) 12 mg/dL (8-26) Creatinine 0.8 mg/dL (0.7-1.3) 0.8 mg/dL (0.7-1.3) Estimated GFR (Cockcroft-Gault) 108.2 108.2 BUN/Creatinine Ratio 11 (6-20) 15 (6-20) Glucose Level 94 mg/dL (70-99) 118 mg/dL (70-99) Calcium Level 9.0 mg/dL (8.5-10.1) 8.6 mg/dL (8.5-10.1) Total Bilirubin 0.4 mg/dL (0.2-1.0) 0.6 mg/dL (0.2-1.0) Aspartate Amino Transf (AST/SGOT) 41 U/L (15-37) 12 U/L (15-37) Alanine Aminotransferase (ALT/SGPT) 27 U/L (16-63) 23 U/L (16-63) Alkaline Phosphatase 318 U/L (46-116) 258 U/L (46-116) C-Reactive Protein, Quantitative 13.9 mg/L (0-3.3) Total Protein 8.1 g/dL (6.4-8.2) 6.9 g/dL (6.4-8.2) Albumin 3.4 g/dL (3.4-5.0) 2.8 g/dL (3.4-5.0) Albumin/Globulin Ratio 0.7 (1.0-1.7) 0.7 (1.0-1.7) Laboratory Tests Test 12/21/18 14:43 12/22/18 04:45 White Blood Count 12.4 x10^3/uL (4.0-11.0) 10.6 x10^3/uL (4.0-11.0) Red Blood Count 4.96 x10^6/uL (4.30-5.70) 4.55 x10^6/uL (4.30-5.70) Hemoglobin 14.4 g/dL (13.0-17.5) 13.4 g/dL (13.0-17.5) Hematocrit 42.2 % (39.0-53.0) 38.6 % (39.0-53.0) Mean Corpuscular Volume 85 fL (79-100) 85 fL (79-100) Mean Corpuscular Hemoglobin 29 pg (25-35) 30 pg (25-35) Mean Corpuscular Hemoglobin Concent 34 g/dL (31-37) 35 g/dL (31-37) Red Cell Distribution Width 13.8 % (11.5-14.5) 14.1 % (11.5-14.5) Platelet Count 502 x10^3/uL (140-400) 425 x10^3/uL (140-400) Neutrophils (%) (Auto) 73 % (31-73) 71 % (31-73) Lymphocytes (%) (Auto) 18 % (24-48) 19 % (24-48) Monocytes (%) (Auto) 9 % (0-9) 9 % (0-9) Eosinophils (%) (Auto) 0 % (0-3) 0 % (0-3) Basophils (%) (Auto) 1 % (0-3) 0 % (0-3) Neutrophils # (Auto) 9.0 x10^3uL (1.8-7.7) 7.6 x10^3uL (1.8-7.7) Lymphocytes # (Auto) 2.2 x10^3/uL (1.0-4.8) 2.0 x10^3/uL (1.0-4.8) Monocytes # (Auto) 1.1 x10^3/uL (0.0-1.1) 1.0 x10^3/uL (0.0-1.1) Eosinophils # (Auto) 0.0 x10^3/uL (0.0-0.7) 0.0 x10^3/uL (0.0-0.7) Basophils # (Auto) 0.1 x10^3/uL (0.0-0.2) 0.0 x10^3/uL (0.0-0.2) Erythrocyte Sedimentation Rate 41 (0-15) Sodium Level 138 mmol/L (136-145) 137 mmol/L (136-145) Potassium Level 4.2 mmol/L (3.5-5.1) 4.0 mmol/L (3.5-5.1) Chloride Level 101 mmol/L (98-107) 102 mmol/L (98-107) Carbon Dioxide Level 29 mmol/L (21-32) 26 mmol/L (21-32) Anion Gap 8 (6-14) 9 (6-14) Blood Urea Nitrogen 9 mg/dL (8-26) 12 mg/dL (8-26) Creatinine 0.8 mg/dL (0.7-1.3) 0.8 mg/dL (0.7-1.3) Estimated GFR (Cockcroft-Gault) 108.2 108.2 BUN/Creatinine Ratio 11 (6-20) 15 (6-20) Glucose Level 94 mg/dL (70-99) 118 mg/dL (70-99) Calcium Level 9.0 mg/dL (8.5-10.1) 8.6 mg/dL (8.5-10.1) Total Bilirubin 0.4 mg/dL (0.2-1.0) 0.6 mg/dL (0.2-1.0) Aspartate Amino Transf (AST/SGOT) 41 U/L (15-37) 12 U/L (15-37) Alanine Aminotransferase (ALT/SGPT) 27 U/L (16-63) 23 U/L (16-63) Alkaline Phosphatase 318 U/L (46-116) 258 U/L (46-116) C-Reactive Protein, Quantitative 13.9 mg/L (0-3.3) Total Protein 8.1 g/dL (6.4-8.2) 6.9 g/dL (6.4-8.2) Albumin 3.4 g/dL (3.4-5.0) 2.8 g/dL (3.4-5.0) Albumin/Globulin Ratio 0.7 (1.0-1.7) 0.7 (1.0-1.7) Images Images Left elbow x-rays are reviewed. Significant only for a small enthesophyte Assessment/Plan Assessment/Plan At this point I do not think this needs any surgical debridement. I would recommend IV antibiotics, if it improves and it is likely to be discharged on oral antibiotics. He can use his arm as tolerated in the meantime. JOSY HARVEY II, MD December 22, 2018 09:33
--- NOTE | 2018-12-22 10:52 | PDOC ---
PROGRESS NOTES Chief Complaint Chief Complaint Left elbow cellulitis, recent fall 12/04-conservative management for now Sepsis POA Recent fall, traumatic causing scapular, rib fractures MSk pain secondary to the fractures and fall History of Present Illness History of Present Illness Patient's pain seems well well-controlled as he was sleeping when I entered the room Left elbow looks not bad, a small wound, dressing intact No fever WBC 10, sedimentation rate 41 On Vanco, ID on board Ortho plans conservative treatment and I agree Plan: trial of Lidoderm patch for MSK pain otherwise continue Vanco per ID recommendations Local wound care Discussed with RN Vitals Vitals Vital Signs Date Time Temp Pulse Resp B/P (MAP) Pulse Ox O2 Delivery O2 Flow Rate FiO2 12/22/18 08:45 Room Air 12/22/18 07:00 98.4 69 16 126/69 (88) 97 98.4 Physical Exam General: Alert, Oriented X3 Heart: Regular rate, Normal S1, Normal S2 Lungs: Clear Abdomen: Normal bowel sounds, Soft, No tenderness Extremities: No clubbing, No cyanosis, No edema, Normal pulses, Other (left elbow small wound, mild swelling in that area, limited flexion secondary to pain and swelling otherwise no open drainage) Labs LABS Laboratory Tests Test 12/21/18 14:43 12/22/18 04:45 White Blood Count 12.4 x10^3/uL (4.0-11.0) 10.6 x10^3/uL (4.0-11.0) Red Blood Count 4.96 x10^6/uL (4.30-5.70) 4.55 x10^6/uL (4.30-5.70) Hemoglobin 14.4 g/dL (13.0-17.5) 13.4 g/dL (13.0-17.5) Hematocrit 42.2 % (39.0-53.0) 38.6 % (39.0-53.0) Mean Corpuscular Volume 85 fL (79-100) 85 fL (79-100) Mean Corpuscular Hemoglobin 29 pg (25-35) 30 pg (25-35) Mean Corpuscular Hemoglobin Concent 34 g/dL (31-37) 35 g/dL (31-37) Red Cell Distribution Width 13.8 % (11.5-14.5) 14.1 % (11.5-14.5) Platelet Count 502 x10^3/uL (140-400) 425 x10^3/uL (140-400) Neutrophils (%) (Auto) 73 % (31-73) 71 % (31-73) Lymphocytes (%) (Auto) 18 % (24-48) 19 % (24-48) Monocytes (%) (Auto) 9 % (0-9) 9 % (0-9) Eosinophils (%) (Auto) 0 % (0-3) 0 % (0-3) Basophils (%) (Auto) 1 % (0-3) 0 % (0-3) Neutrophils # (Auto) 9.0 x10^3uL (1.8-7.7) 7.6 x10^3uL (1.8-7.7) Lymphocytes # (Auto) 2.2 x10^3/uL (1.0-4.8) 2.0 x10^3/uL (1.0-4.8) Monocytes # (Auto) 1.1 x10^3/uL (0.0-1.1) 1.0 x10^3/uL (0.0-1.1) Eosinophils # (Auto) 0.0 x10^3/uL (0.0-0.7) 0.0 x10^3/uL (0.0-0.7) Basophils # (Auto) 0.1 x10^3/uL (0.0-0.2) 0.0 x10^3/uL (0.0-0.2) Erythrocyte Sedimentation Rate 41 (0-15) Sodium Level 138 mmol/L (136-145) 137 mmol/L (136-145) Potassium Level 4.2 mmol/L (3.5-5.1) 4.0 mmol/L (3.5-5.1) Chloride Level 101 mmol/L (98-107) 102 mmol/L (98-107) Carbon Dioxide Level 29 mmol/L (21-32) 26 mmol/L (21-32) Anion Gap 8 (6-14) 9 (6-14) Blood Urea Nitrogen 9 mg/dL (8-26) 12 mg/dL (8-26) Creatinine 0.8 mg/dL (0.7-1.3) 0.8 mg/dL (0.7-1.3) Estimated GFR (Cockcroft-Gault) 108.2 108.2 BUN/Creatinine Ratio 11 (6-20) 15 (6-20) Glucose Level 94 mg/dL (70-99) 118 mg/dL (70-99) Calcium Level 9.0 mg/dL (8.5-10.1) 8.6 mg/dL (8.5-10.1) Total Bilirubin 0.4 mg/dL (0.2-1.0) 0.6 mg/dL (0.2-1.0) Aspartate Amino Transf (AST/SGOT) 41 U/L (15-37) 12 U/L (15-37) Alanine Aminotransferase (ALT/SGPT) 27 U/L (16-63) 23 U/L (16-63) Alkaline Phosphatase 318 U/L (46-116) 258 U/L (46-116) C-Reactive Protein, Quantitative 13.9 mg/L (0-3.3) Total Protein 8.1 g/dL (6.4-8.2) 6.9 g/dL (6.4-8.2) Albumin 3.4 g/dL (3.4-5.0) 2.8 g/dL (3.4-5.0) Albumin/Globulin Ratio 0.7 (1.0-1.7) 0.7 (1.0-1.7) Review of Systems Review of Systems Left elbow pain, left MSK rib pain otherwise rest of ROS 14 point negative Assessment and Plan Assessmemt and Plan Problems Medical Problems: (1) Cellulitis of left elbow Status: Acute Comment Review of Relevant I have reviewed the following items fly (where applicable) has been applied. Labs Laboratory Tests Test 12/21/18 14:43 12/22/18 04:45 White Blood Count 12.4 x10^3/uL (4.0-11.0) 10.6 x10^3/uL (4.0-11.0) Red Blood Count 4.96 x10^6/uL (4.30-5.70) 4.55 x10^6/uL (4.30-5.70) Hemoglobin 14.4 g/dL (13.0-17.5) 13.4 g/dL (13.0-17.5) Hematocrit 42.2 % (39.0-53.0) 38.6 % (39.0-53.0) Mean Corpuscular Volume 85 fL (79-100) 85 fL (79-100) Mean Corpuscular Hemoglobin 29 pg (25-35) 30 pg (25-35) Mean Corpuscular Hemoglobin Concent 34 g/dL (31-37) 35 g/dL (31-37) Red Cell Distribution Width 13.8 % (11.5-14.5) 14.1 % (11.5-14.5) Platelet Count 502 x10^3/uL (140-400) 425 x10^3/uL (140-400) Neutrophils (%) (Auto) 73 % (31-73) 71 % (31-73) Lymphocytes (%) (Auto) 18 % (24-48) 19 % (24-48) Monocytes (%) (Auto) 9 % (0-9) 9 % (0-9) Eosinophils (%) (Auto) 0 % (0-3) 0 % (0-3) Basophils (%) (Auto) 1 % (0-3) 0 % (0-3) Neutrophils # (Auto) 9.0 x10^3uL (1.8-7.7) 7.6 x10^3uL (1.8-7.7) Lymphocytes # (Auto) 2.2 x10^3/uL (1.0-4.8) 2.0 x10^3/uL (1.0-4.8) Monocytes # (Auto) 1.1 x10^3/uL (0.0-1.1) 1.0 x10^3/uL (0.0-1.1) Eosinophils # (Auto) 0.0 x10^3/uL (0.0-0.7) 0.0 x10^3/uL (0.0-0.7) Basophils # (Auto) 0.1 x10^3/uL (0.0-0.2) 0.0 x10^3/uL (0.0-0.2) Erythrocyte Sedimentation Rate 41 (0-15) Sodium Level 138 mmol/L (136-145) 137 mmol/L (136-145) Potassium Level 4.2 mmol/L (3.5-5.1) 4.0 mmol/L (3.5-5.1) Chloride Level 101 mmol/L (98-107) 102 mmol/L (98-107) Carbon Dioxide Level 29 mmol/L (21-32) 26 mmol/L (21-32) Anion Gap 8 (6-14) 9 (6-14) Blood Urea Nitrogen 9 mg/dL (8-26) 12 mg/dL (8-26) Creatinine 0.8 mg/dL (0.7-1.3) 0.8 mg/dL (0.7-1.3) Estimated GFR (Cockcroft-Gault) 108.2 108.2 BUN/Creatinine Ratio 11 (6-20) 15 (6-20) Glucose Level 94 mg/dL (70-99) 118 mg/dL (70-99) Calcium Level 9.0 mg/dL (8.5-10.1) 8.6 mg/dL (8.5-10.1) Total Bilirubin 0.4 mg/dL (0.2-1.0) 0.6 mg/dL (0.2-1.0) Aspartate Amino Transf (AST/SGOT) 41 U/L (15-37) 12 U/L (15-37) Alanine Aminotransferase (ALT/SGPT) 27 U/L (16-63) 23 U/L (16-63) Alkaline Phosphatase 318 U/L (46-116) 258 U/L (46-116) C-Reactive Protein, Quantitative 13.9 mg/L (0-3.3) Total Protein 8.1 g/dL (6.4-8.2) 6.9 g/dL (6.4-8.2) Albumin 3.4 g/dL (3.4-5.0) 2.8 g/dL (3.4-5.0) Albumin/Globulin Ratio 0.7 (1.0-1.7) 0.7 (1.0-1.7) Laboratory Tests Test 12/21/18 14:43 12/22/18 04:45 White Blood Count 12.4 x10^3/uL (4.0-11.0) 10.6 x10^3/uL (4.0-11.0) Red Blood Count 4.96 x10^6/uL (4.30-5.70) 4.55 x10^6/uL (4.30-5.70) Hemoglobin 14.4 g/dL (13.0-17.5) 13.4 g/dL (13.0-17.5) Hematocrit 42.2 % (39.0-53.0) 38.6 % (39.0-53.0) Mean Corpuscular Volume 85 fL (79-100) 85 fL (79-100) Mean Corpuscular Hemoglobin 29 pg (25-35) 30 pg (25-35) Mean Corpuscular Hemoglobin Concent 34 g/dL (31-37) 35 g/dL (31-37) Red Cell Distribution Width 13.8 % (11.5-14.5) 14.1 % (11.5-14.5) Platelet Count 502 x10^3/uL (140-400) 425 x10^3/uL (140-400) Neutrophils (%) (Auto) 73 % (31-73) 71 % (31-73) Lymphocytes (%) (Auto) 18 % (24-48) 19 % (24-48) Monocytes (%) (Auto) 9 % (0-9) 9 % (0-9) Eosinophils (%) (Auto) 0 % (0-3) 0 % (0-3) Basophils (%) (Auto) 1 % (0-3) 0 % (0-3) Neutrophils # (Auto) 9.0 x10^3uL (1.8-7.7) 7.6 x10^3uL (1.8-7.7) Lymphocytes # (Auto) 2.2 x10^3/uL (1.0-4.8) 2.0 x10^3/uL (1.0-4.8) Monocytes # (Auto) 1.1 x10^3/uL (0.0-1.1) 1.0 x10^3/uL (0.0-1.1) Eosinophils # (Auto) 0.0 x10^3/uL (0.0-0.7) 0.0 x10^3/uL (0.0-0.7) Basophils # (Auto) 0.1 x10^3/uL (0.0-0.2) 0.0 x10^3/uL (0.0-0.2) Erythrocyte Sedimentation Rate 41 (0-15) Sodium Level 138 mmol/L (136-145) 137 mmol/L (136-145) Potassium Level 4.2 mmol/L (3.5-5.1) 4.0 mmol/L (3.5-5.1) Chloride Level 101 mmol/L (98-107) 102 mmol/L (98-107) Carbon Dioxide Level 29 mmol/L (21-32) 26 mmol/L (21-32) Anion Gap 8 (6-14) 9 (6-14) Blood Urea Nitrogen 9 mg/dL (8-26) 12 mg/dL (8-26) Creatinine 0.8 mg/dL (0.7-1.3) 0.8 mg/dL (0.7-1.3) Estimated GFR (Cockcroft-Gault) 108.2 108.2 BUN/Creatinine Ratio 11 (6-20) 15 (6-20) Glucose Level 94 mg/dL (70-99) 118 mg/dL (70-99) Calcium Level 9.0 mg/dL (8.5-10.1) 8.6 mg/dL (8.5-10.1) Total Bilirubin 0.4 mg/dL (0.2-1.0) 0.6 mg/dL (0.2-1.0) Aspartate Amino Transf (AST/SGOT) 41 U/L (15-37) 12 U/L (15-37) Alanine Aminotransferase (ALT/SGPT) 27 U/L (16-63) 23 U/L (16-63) Alkaline Phosphatase 318 U/L (46-116) 258 U/L (46-116) C-Reactive Protein, Quantitative 13.9 mg/L (0-3.3) Total Protein 8.1 g/dL (6.4-8.2) 6.9 g/dL (6.4-8.2) Albumin 3.4 g/dL (3.4-5.0) 2.8 g/dL (3.4-5.0) Albumin/Globulin Ratio 0.7 (1.0-1.7) 0.7 (1.0-1.7) Medications Current Medications Vancomycin HCl (Vanco Per Pharmacy) 1 each PRN DAILY PRN MC SEE COMMENTS Last administered on 5/9/19at 17:21; Start 12/21/18 at 16:15 Piperacillin Sod/ Tazobactam Sod 3.375 gm/Sodium Chloride 50 ml @ 100 mls/hr 1X ONCE IV Last administered on 12/21/18at 16:15; Start 12/21/18 at 16:15; Stop at 16:44; Status DC Vancomycin HCl 2 gm/Sodium Chloride 500 ml @ 250 mls/hr 1X ONCE IV Last administered on 12/21/18at 16:35; Start 12/21/18 at 16:30; Stop 12/21/18 at 18:29; Status DC Ondansetron HCl (Zofran) 4 mg PRN Q8HRS PRN IV NAUSEA/VOMITING; Start 12/21/18 at 16:30; Stop 12/22/18 at 16:29 Morphine Sulfate (Morphine Sulfate) 2 mg PRN Q2HR PRN IV PAIN; Start 12/21/18 at 16:30; Stop 12/22/18 at 16:29 Acetaminophen (Tylenol) 650 mg PRN Q4HRS PRN PO FEVER; Start 12/21/18 at 16:30; Stop 12/22/18 at 16:29 Vancomycin HCl 1.5 gm/Sodium Chloride 500 ml @ 250 mls/hr Q8H IV Last administered on 12/22/18at 08:45; Start 12/22/18 at 00:00 Vancomycin HCl (Vancomycin Trough Level) 1 each 1X ONCE MC ; Start 12/22/18 at 15:30; Stop 12/22/18 at 15:31 Pharmacy Consult (C.diff Med Screen By Rx) 1 each 1X ONCE MC ; Start 12/21/18 at 17:45; Stop 12/21/18 at 17:46; Status UNV Lactobacillus Rhamnosus (Culturelle) 1 cap BID PO Last administered on 12/22/18at 08:44; Start 12/21/18 at 21:00 Acetaminophen/ Hydrocodone Bitart (Lortab 5/325) 1 tab PRN Q6HRS PRN PO PAIN Last administered on 12/22/18at 08:45; Start 12/21/18 at 18:45 Ondansetron HCl (Zofran) 4 mg PRN Q6HRS PRN IV NAUSEA/VOMITING; Start 12/22/18 at 09:15 Ondansetron HCl (Zofran Odt) 4 mg PRN Q6HRS PRN PO NAUSEA/VOMITING; Start 12/22/18 at 09:15 Active Scripts Active Reported Colace (Docusate Sodium) 100 Mg Capsule 1 Cap PO BID PRN [place] 5-325 Tablet (Acetaminophen/Hydrocodone Bitart) 1 Each Tablet 1 Tab PO PRN Q6HRS PRN No Known Medications Prior To Admisstion (Info) Each 1 Each 1X Vitals/I & O Vital Sign - Last 24 Hours 12/21/18 12/21/18 12/21/18 12/21/18 14:20 17:30 19:00 19:44 Temp 98.1 98.8 98.1 98.8 Pulse 67 77 Resp 16 19 20 B/P (MAP) 153/78 (103) 125/58 (80) Pulse Ox 96 98 O2 Delivery Room Air Room Air Room Air Room Air 12/21/18 12/21/18 12/21/18 12/22/18 19:50 20:44 23:00 01:52 Temp 98.8 98.8 Pulse 72 Resp 20 19 20 B/P (MAP) 123/60 (81) Pulse Ox 97 O2 Delivery Room Air Room Air Room Air 12/22/18 12/22/18 12/22/18 12/22/18 03:00 07:00 07:14 08:00 Temp 98.3 98.4 98.3 98.4 Pulse 72 69 Resp 19 16 B/P (MAP) 124/61 (82) 126/69 (88) Pulse Ox 94 97 O2 Delivery Room Air Room Air Room Air Room Air 12/22/18 08:45 O2 Delivery Room Air Intake and Output 12/21/18 12/21/18 12/22/18 15:00 23:00 07:00 Intake Total 350 ml 0 ml Output Total 3 ml Balance 350 ml -3 ml MILA GAINES MD December 22, 2018 10:52
[2018-12-22 11:00] VITALS: BP 108/60
[2018-12-22] MEDS ORDERED: DOCUSATE SODIUM 100 MG CAPSULE. PO PRN (11:00)
--- NOTE | 2018-12-22 11:02 | PDOC ---
Provider Note Provider Note Pt seen and examined consult dictated [id number] IMP: LUE mild cellulitis REC: cont IV abx for one more day,dc likely tomorrow Pt is insisting for dc home today ok to dc on linezolid today sw to assist for zyvox script local wound care d/w DWIGHT HUANG MD December 22, 2018 11:02
--- NOTE | 2018-12-22 11:25 | NUR ---
SW notified Pt needs PO Zyvox. SW phoned the Zyvox assistance and request was approved. Orders faxed and Medication will be delivered to Pt's home tomorrow. RN and Pt notified. Inside Sales Lead phone used to communicate with Pt.
[2018-12-22] MEDS: LIDOCAINE (700MG/PATCH) PATCH. TD SCH (12:46)
[2018-12-22] MEDS ORDERED: cefTRIAXone IV Push 1 GM VIAL. IVP SCH (14:00)
[2018-12-22] MEDS: LINEZOLID 600 MG TABLET PO SCH ×2 (14:08→20:50)
[2018-12-22 14:50] VITALS: BP 112/58
[2018-12-22 19:00] VITALS: BP 113/57
[2018-12-22] MEDS ORDERED: PATCH REMOVAL. MC SCH (21:00)
[2018-12-22 22:47] VITALS: BP 102/60
--- NOTE | 2018-12-22 23:55 | CONS ---
DATE OF CONSULTATION: 12/22/2018 REFERRING PHYSICIAN: Dr. Colvin. REASON FOR CONSULTATION: Left elbow infection. HISTORY OF PRESENT ILLNESS: A 38-year-old male with history of fall from a ladder on 12/08/2018, he was admitted to the hospital. He had suffered rib and transverse process fractures. Orthopedics had evaluated him and had recommended nonoperative intervention. He was admitted through ER with an open wound over the left elbow, which was present when he had a history of fall on 12/04/2018 with worsening redness and some drainage. The patient denies any fevers, chills, nausea, vomiting, diarrhea or abdominal pain. Denies being on antibiotics. He denies any worsening movement with the elbow. Drainage has somewhat decreased. Orthopedic had evaluated the patient. He is not a surgical candidate. He was started on IV vancomycin 1.25 IV q. 8 and Zosyn. Today, he is feeling much better. He is asking to be discharged on p.o. medication. Denies any neurological weakness, any restriction of movement at the shoulder or the wrist. PAST MEDICAL HISTORY: None, history of fall and sustaining rib and transverse process fracture. PAST SURGICAL HISTORY: None. FAMILY HISTORY: As per HPI. SOCIAL HISTORY: Lives alone. Denies smoking, ETOH. The patient denied any drug abuse, but did mention about cocaine abuse in his chart. CURRENT MEDICATIONS: IV vancomycin and IV Zosyn. Other medications reviewed in medication list. ALLERGIES: No known drug allergies. REVIEW OF SYSTEMS: Negative except for above. The patient says shoulder pain has improved. PHYSICAL EXAMINATION: VITAL SIGNS: Temperature 98.4, pulse 69, respiratory rate 16, blood pressure 126/69, oxygen saturation 97% on room air. GENERAL: Alert, oriented x 3 male lying comfortably in bed, in no acute distress, cooperative. HEENT: Normocephalic, atraumatic, anicteric. No thrush. Oral mucosa moist. NECK: Supple. No JVD. No thyromegaly. LUNGS: Clear bilaterally. No wheezing. HEART: S1, S2. No gallops, murmurs, rubs. ABDOMEN: Soft, obese. Bowel sounds present, nontender, nondistended. No rebound, no guarding. EXTREMITIES: No edema, no cyanosis, no clubbing. Left upper extremity edema present around the left elbow with mild cellulitic changes. Mild bursitis. No fluctuance. There is a dry eschar developing already. No gross decrease in range of motion. No shoulder swelling or wrist swelling noted. The patient's movement at the shoulder, elbow and wrist appears to be within normal limits. Radial pulses present. CENTRAL NERVOUS SYSTEM: Alert and oriented x 3. Grossly nonfocal. PSYCHIATRIC: Cooperative, appropriate mood and affect. DERMATOLOGIC: Warm, dry. No generalized rash. LABORATORY DATA: WBC 10.6, was 12.6, hemoglobin 13.4, platelets 425. ESR 41. Sodium 137, potassium 4.0, chloride 102, bicarbonate 26, BUN 12, creatinine 0.8, glucose 118, calcium 8.6. AST 12, ALT 23, alkaline phosphatase 258, albumin 2.8. IMAGING: Left elbow x-ray shows no acute bony abnormality. There is moderate diffuse subcutaneous edema. There is mild tenderness calcification at the triceps tendon insertion site upon the olecranon process. IMPRESSION: 1. Mild left elbow cellulitis. No evidence of septic bursitis at this time. Area is scabbed already.Ortho evaluation noted 2. History of a recent fall with transverse process fracture with rib fracture improving. 3. History of substance dependence. 4. Mild leukocytosis, likely from above, resolved. RECOMMENDATIONS: DC IV Vancomycin. Start linezolid and ceftriaxone The patient to receive one more day of IV antibiotics. He is insisting to be discharged home today on oral antibiotics. We will give a script for linezolid. Social work to assist patient for home discharge antibiotics. Continue local care, elevation of the left upper extremity. If it gets worse, he needs to return back to the hospital at which time he may need I and D. Discussed with RN. Thank you for allowing us to participate in this patient's care. If you have any questions, do not hesitate to contact me. DWIGHT UMANZOR MD DR: NADIA/dom JOB#: [id number] / [id number] ANGELIQUE
[2018-12-23 03:00] VITALS: BP 115/68
--- NOTE | 2018-12-23 03:25 | NUR ---
Patient's lidoderm patch removed.
[2018-12-23] MEDS: HYDROcodone/APAP 5/325MG 1 TAB TABLET PO PRN ×2 (03:31→13:33)
[2018-12-23 05:26] LABS: CREATININE 0.8 mg/dL (0.7-1.3); GFR 108.2
[2018-12-23 07:00] VITALS: BP 107/58
[2018-12-23] MEDS: LACTOBACILLUS RHAMNOSUS GG 1 CAPSULE. PO SCH (08:03)
[2018-12-23] MEDS: LINEZOLID 600 MG TABLET PO SCH (08:03)
[2018-12-23] MEDS: LIDOCAINE (700MG/PATCH) PATCH. TD SCH (08:04)
--- NOTE | 2018-12-23 09:00 | PDOC ---
ORTHO PROGRESS NOTES Subjective Doing better. Vitals Vital Signs Date Time Temp Pulse Resp B/P (MAP) Pulse Ox O2 Delivery O2 Flow Rate FiO2 12/23/18 08:00 Room Air 12/23/18 07:00 98.1 62 18 107/58 (74) 99 98.1 Labs Laboratory Tests Test 12/21/18 14:43 12/22/18 04:45 12/23/18 04:55 White Blood Count 12.4 x10^3/uL (4.0-11.0) 10.6 x10^3/uL (4.0-11.0) Red Blood Count 4.96 x10^6/uL (4.30-5.70) 4.55 x10^6/uL (4.30-5.70) Hemoglobin 14.4 g/dL (13.0-17.5) 13.4 g/dL (13.0-17.5) Hematocrit 42.2 % (39.0-53.0) 38.6 % (39.0-53.0) Mean Corpuscular Volume 85 fL (79-100) 85 fL (79-100) Mean Corpuscular Hemoglobin 29 pg (25-35) 30 pg (25-35) Mean Corpuscular Hemoglobin Concent 34 g/dL (31-37) 35 g/dL (31-37) Red Cell Distribution Width 13.8 % (11.5-14.5) 14.1 % (11.5-14.5) Platelet Count 502 x10^3/uL (140-400) 425 x10^3/uL (140-400) Neutrophils (%) (Auto) 73 % (31-73) 71 % (31-73) Lymphocytes (%) (Auto) 18 % (24-48) 19 % (24-48) Monocytes (%) (Auto) 9 % (0-9) 9 % (0-9) Eosinophils (%) (Auto) 0 % (0-3) 0 % (0-3) Basophils (%) (Auto) 1 % (0-3) 0 % (0-3) Neutrophils # (Auto) 9.0 x10^3uL (1.8-7.7) 7.6 x10^3uL (1.8-7.7) Lymphocytes # (Auto) 2.2 x10^3/uL (1.0-4.8) 2.0 x10^3/uL (1.0-4.8) Monocytes # (Auto) 1.1 x10^3/uL (0.0-1.1) 1.0 x10^3/uL (0.0-1.1) Eosinophils # (Auto) 0.0 x10^3/uL (0.0-0.7) 0.0 x10^3/uL (0.0-0.7) Basophils # (Auto) 0.1 x10^3/uL (0.0-0.2) 0.0 x10^3/uL (0.0-0.2) Erythrocyte Sedimentation Rate 41 (0-15) Sodium Level 138 mmol/L (136-145) 137 mmol/L (136-145) Potassium Level 4.2 mmol/L (3.5-5.1) 4.0 mmol/L (3.5-5.1) Chloride Level 101 mmol/L (98-107) 102 mmol/L (98-107) Carbon Dioxide Level 29 mmol/L (21-32) 26 mmol/L (21-32) Anion Gap 8 (6-14) 9 (6-14) Blood Urea Nitrogen 9 mg/dL (8-26) 12 mg/dL (8-26) Creatinine 0.8 mg/dL (0.7-1.3) 0.8 mg/dL (0.7-1.3) 0.8 mg/dL (0.7-1.3) Estimated GFR (Cockcroft-Gault) 108.2 108.2 108.2 BUN/Creatinine Ratio 11 (6-20) 15 (6-20) Glucose Level 94 mg/dL (70-99) 118 mg/dL (70-99) Calcium Level 9.0 mg/dL (8.5-10.1) 8.6 mg/dL (8.5-10.1) Total Bilirubin 0.4 mg/dL (0.2-1.0) 0.6 mg/dL (0.2-1.0) Aspartate Amino Transf (AST/SGOT) 41 U/L (15-37) 12 U/L (15-37) Alanine Aminotransferase (ALT/SGPT) 27 U/L (16-63) 23 U/L (16-63) Alkaline Phosphatase 318 U/L (46-116) 258 U/L (46-116) C-Reactive Protein, Quantitative 13.9 mg/L (0-3.3) Total Protein 8.1 g/dL (6.4-8.2) 6.9 g/dL (6.4-8.2) Albumin 3.4 g/dL (3.4-5.0) 2.8 g/dL (3.4-5.0) Albumin/Globulin Ratio 0.7 (1.0-1.7) 0.7 (1.0-1.7) Laboratory Tests Test 12/23/18 04:55 Creatinine 0.8 mg/dL (0.7-1.3) Estimated GFR (Cockcroft-Gault) 108.2 Notes Resting, easily awakens LUE: no fluid collection, mild erythema at olecranon region Assessment and Plan home today on PO abx f/u 2 wks in clinic JOSY HARVEY II, MD December 23, 2018 09:00
[2018-12-23 11:00] VITALS: BP 113/64
[2018-12-23] MEDS ORDERED: NAPR500T8 PO (11:12)
--- NOTE | 2018-12-23 11:15 | PDOC3 ---
Discharge Summary Visit Information Date of Admission: December 22, 2018 Date of Discharge: December 23, 2018 Admitting Diagnosis Comment: Left elbow cellulitis, recent fall 12/04-conservative management for now Sepsis POA Recent fall, traumatic causing scapular, rib fractures MSk pain secondary to the fractures and fall Final Diagnosis Problems Medical Problems: (1) Cellulitis of left elbow Status: Acute Brief Hospital Course Allergies Allergies Coded Allergies Type Severity Reaction Last Updated Verified No Known Drug Allergies 12/04/18 No Vital Signs Vital Signs Date Time Temp Pulse Resp B/P (MAP) Pulse Ox O2 Delivery O2 Flow Rate FiO2 12/23/18 08:00 Room Air 12/23/18 07:00 98.1 62 18 107/58 (74) 99 98.1 Lab Results Laboratory Tests Test 12/21/18 14:43 12/22/18 04:45 12/23/18 04:55 White Blood Count 12.4 x10^3/uL (4.0-11.0) 10.6 x10^3/uL (4.0-11.0) Red Blood Count 4.96 x10^6/uL (4.30-5.70) 4.55 x10^6/uL (4.30-5.70) Hemoglobin 14.4 g/dL (13.0-17.5) 13.4 g/dL (13.0-17.5) Hematocrit 42.2 % (39.0-53.0) 38.6 % (39.0-53.0) Mean Corpuscular Volume 85 fL (79-100) 85 fL (79-100) Mean Corpuscular Hemoglobin 29 pg (25-35) 30 pg (25-35) Mean Corpuscular Hemoglobin Concent 34 g/dL (31-37) 35 g/dL (31-37) Red Cell Distribution Width 13.8 % (11.5-14.5) 14.1 % (11.5-14.5) Platelet Count 502 x10^3/uL (140-400) 425 x10^3/uL (140-400) Neutrophils (%) (Auto) 73 % (31-73) 71 % (31-73) Lymphocytes (%) (Auto) 18 % (24-48) 19 % (24-48) Monocytes (%) (Auto) 9 % (0-9) 9 % (0-9) Eosinophils (%) (Auto) 0 % (0-3) 0 % (0-3) Basophils (%) (Auto) 1 % (0-3) 0 % (0-3) Neutrophils # (Auto) 9.0 x10^3uL (1.8-7.7) 7.6 x10^3uL (1.8-7.7) Lymphocytes # (Auto) 2.2 x10^3/uL (1.0-4.8) 2.0 x10^3/uL (1.0-4.8) Monocytes # (Auto) 1.1 x10^3/uL (0.0-1.1) 1.0 x10^3/uL (0.0-1.1) Eosinophils # (Auto) 0.0 x10^3/uL (0.0-0.7) 0.0 x10^3/uL (0.0-0.7) Basophils # (Auto) 0.1 x10^3/uL (0.0-0.2) 0.0 x10^3/uL (0.0-0.2) Erythrocyte Sedimentation Rate 41 (0-15) Sodium Level 138 mmol/L (136-145) 137 mmol/L (136-145) Potassium Level 4.2 mmol/L (3.5-5.1) 4.0 mmol/L (3.5-5.1) Chloride Level 101 mmol/L (98-107) 102 mmol/L (98-107) Carbon Dioxide Level 29 mmol/L (21-32) 26 mmol/L (21-32) Anion Gap 8 (6-14) 9 (6-14) Blood Urea Nitrogen 9 mg/dL (8-26) 12 mg/dL (8-26) Creatinine 0.8 mg/dL (0.7-1.3) 0.8 mg/dL (0.7-1.3) 0.8 mg/dL (0.7-1.3) Estimated GFR (Cockcroft-Gault) 108.2 108.2 108.2 BUN/Creatinine Ratio 11 (6-20) 15 (6-20) Glucose Level 94 mg/dL (70-99) 118 mg/dL (70-99) Calcium Level 9.0 mg/dL (8.5-10.1) 8.6 mg/dL (8.5-10.1) Total Bilirubin 0.4 mg/dL (0.2-1.0) 0.6 mg/dL (0.2-1.0) Aspartate Amino Transf (AST/SGOT) 41 U/L (15-37) 12 U/L (15-37) Alanine Aminotransferase (ALT/SGPT) 27 U/L (16-63) 23 U/L (16-63) Alkaline Phosphatase 318 U/L (46-116) 258 U/L (46-116) C-Reactive Protein, Quantitative 13.9 mg/L (0-3.3) Total Protein 8.1 g/dL (6.4-8.2) 6.9 g/dL (6.4-8.2) Albumin 3.4 g/dL (3.4-5.0) 2.8 g/dL (3.4-5.0) Albumin/Globulin Ratio 0.7 (1.0-1.7) 0.7 (1.0-1.7) Laboratory Tests Test 12/23/18 04:55 Creatinine 0.8 mg/dL (0.7-1.3) Estimated GFR (Cockcroft-Gault) 108.2 Brief Hospital Course Mr. Hamilton is a 38 old who had a recent traumatic fall causing subscapular rib fractures MSK pain. Also some left elbow injury but no fracture. Came in for left elbow cellulitis which is rather mild to moderate. Comanage with ID and orthopedics. No need for I&D. ID is okay for discharge Zyvox and we have arranged for freebies. Zyvox has been delivered to his place I wrote for naproxen and Fords to help with the swelling and pain Consults performed ID, Ortho Procedures performed none Discharge disposition home, he is self-pay Discharge instruction is follow-up with Dr. Correa as instructed Discharge Information Condition at Discharge: Improved, Stable Follow Up: Weeks (kenji as instructed) Disposition/Orders: D/C to Home Scheduled Info (No Known Medications Prior To Admisstion) Each, 1 EACH 1X for no medication, (Reported) Entered as Reported by: THOMAS PEDERSON on 12/05/18 3083 Last Action: HELD on 12/22/18 1053 by MILA GAINES Naproxen (Naproxen) 500 Mg Tablet.dr, 1 TAB PO BID for swelling and pain, #14 Ref 2 Prescribed by: MILA GAINES on 12/23/18 1112 Scheduled PRN Docusate Sodium (Colace) 100 Mg Capsule, 1 CAP PO BID PRN for CONSTIPATION, #30 (Reported) Entered as Reported by: ANIKA ANDREWS on 12/06/18 1305 Last Action: Continued on 12/22/18 1053 by MILA GAINES Hydrocodone/Apap 5-325 (Fords 5-325 Tablet) 1 Each Tablet, 1 TAB PO PRN Q6HRS PRN for PAIN, Ref 0 (Reported) Entered as Reported by: ANIKA ANDREWS on 12/06/18 1305 Last Action: Continued on 12/21/18 183 by CHARITY BUSTAMANTE, RN MILA GAINES MD December 23, 2018 11:14
--- NOTE | 2018-12-23 13:37 | NUR ---
Discharge Note: PT DISCHARGED HOME WITH SELF CARE, PT STABLE UPON DISCHARGE, PIV REMOVED WITHOUT COMPLICATIONS. PT WOUND CARE EDUCATION PROVIDED VIA INPUT OUTPUT CLERK AND EDUCATIONAL MATERIALS IN [place] GIVEN TO PT. PT GIVEN CAB PASS WITH HOME ADDRESS FOR DROP OFF, PT STATED THAT HE WAS ABLE TO ENTER RESIDENCE WITH HIS KEYS. ANN ALLEN Discharge instructions and discharge home medications reviewed with Patient WITH INPUT OUTPUT CLERK and a copy given. All questions have been answered and understanding verbalized.
== END 2018-12-23 13:42 | disposition home or self-care (01) | DRG 872 ==
LOC: ER 14:04 → 5 NORTH 16:25 → OBSVTOIN 12-22 14:55
PROVIDERS: ADMIT Internal Medicine; ATTEND Internal Medicine
DX: A41.9 Sepsis, unspecified organism (principal); L03.114 Cellulitis of left upper limb; Z83.3 Family history of diabetes mellitus; F14.10 Cocaine abuse, uncomplicated; S51.032A Puncture wound without foreign body of left elbow, initial encounter; W11.XXXA Fall on and from ladder, initial encounter; Y93.89 Activity, other specified; Y92.89 Other specified places as the place of occurrence of the external cause; Y99.8 Other external cause status
CPT/HCPCS: 36415; 73080; 80053; 82565; 85025; 85651; 86140; 96365; 96368; G0378; G0379; J0696; J2543; J3370; J7040; 99285-25